=== PATIENT | female | born 1930 | race Caucasian/White ===

== ENCOUNTER 2017-12-17 17:21 | Inpatient (IN) | payer MEDICARE, MEDICAID ==
[~2017-12-17] VITALS: Ht 165.1 cm; Wt 73.9 kg
--- NOTE | 2017-12-17 16:30 | NUR ---
Patient arrived to unit via gurney and ambulance service, no complaints of pain at this time, no signs of distress noted, 106/80, 76 pulse, 98% on room air, 97.7 oral temperature, 19 respirations, no skin issues, brief changed at this time, incontinent of bowel and bladder, call light placed in reach, bed locked and in lowest position, MD Colon and Katiuska notified of patients arrival
[2017-12-17] MEDS ORDERED: ACETAMINOPHEN 325 MG TABLET PO PRN ×2 (17:45→20:30)
[2017-12-17] MEDS ORDERED: MAGNESIUM HYDROXIDE 30 ML LIQUID UDC PO PRN (17:45)
[2017-12-17] MEDS ORDERED: Z GUARD REMEDY PASTE 57 GM TUBE TOP PRN (17:45)
[2017-12-17] MEDS ORDERED: ROSU10TA PO (18:40)
[2017-12-17] MEDS ORDERED: CARV6.25 PO (18:40)
[2017-12-17] MEDS ORDERED: ACET-2154 PO (18:40)
[2017-12-17] MEDS ORDERED: LISI-603 PO (18:40)
[2017-12-17] MEDS ORDERED: DEXT38GE12 PO (18:43)
[2017-12-17] MEDS ORDERED: GLUC1KIT IJ (18:43)
[2017-12-17] MEDS ORDERED: FOLI1TAB16 PO (18:53)
[2017-12-17] MEDS ORDERED: ONDA4TAB5 PO (18:53)
[2017-12-17] MEDS ORDERED: INSU200I SQ (18:53)
[2017-12-17] MEDS ORDERED: QUET25TA PO (18:53)
[2017-12-17 20:00] VITALS: BP 147/64
--- NOTE | 2017-12-17 20:00 | NUR ---
Patient received in bed. AAO X2. Confused. No acute distress or SOB noted. Australian speaking. Able to makes needs known. On room air. Brief assessment done. VS stable. Complained of neck pain. Safety measures maintained. Bed in low position, brake on, side rails upx2. Call light and personal belongings within reach. Continue to monitor.
[2017-12-17] MEDS ORDERED: GLUCAGON,HUMAN RECOMBINANT 1 MG VIAL IVP PRN (20:30)
[2017-12-17] MEDS ORDERED: QUETIAPINE FUMARATE 25 MG TABLET PO PRN (20:30)
[2017-12-17] MEDS ORDERED: ONDANSETRON HCL 4 MG TABLET PO PRN (20:30)
[2017-12-17] MEDS ORDERED: GLUCOSE ORAL GEL 15 GM TUBE PO PRN (20:30)
[2017-12-17] MEDS ORDERED: ATORVASTATIN 20 MG TABLET PO SCH (21:00)
[2017-12-17] MEDS ORDERED: INSULIN LISPRO 300 UNIT/3 ML VIAL SQ SCH (21:00)
[2017-12-17] MEDS ORDERED: Medication Not On Formulary EA (Rosuvastatin Calcium (Crestor) 10 MG) PO SCH (21:00)
[2017-12-17] MEDS: LISINOPRIL 20 MG TABLET PO SCH (21:08)
[2017-12-17] MEDS: CARVEDILOL 6.25 MG TABLET PO SCH (21:08)
[2017-12-18 07:15] VITALS: BP 131/77
[2017-12-18] MEDS ORDERED: DEXTROSE 50% 50 ML DISP.SYRIN IV PRN (07:30)
--- NOTE | 2017-12-18 08:00 | NUR ---
Patient noted sitting up in bed, no complaints of pain at this time, no signs of distress noted, call light in reach, bed locked and in lowest position
[2017-12-18 08:15] VITALS: BP 165/70
[2017-12-18] MEDS: BLOOD SUGAR DIAGNOSTIC 1 EACH STRIP VI SCH ×4 (08:36→20:44)
[2017-12-18] MEDS: LISINOPRIL 20 MG TABLET PO SCH ×2 (08:37→20:38)
[2017-12-18] MEDS: FOLIC ACID 1 MG TABLET PO SCH (08:37)
[2017-12-18] MEDS: CARVEDILOL 6.25 MG TABLET PO SCH ×2 (08:38→17:26)
--- NOTE | 2017-12-18 11:00 | NUR ---
Per physical therapy observation, patient became non verbally responsive when assisted to bathroom commode, physical therapy staff states patient was assisted back the wheelchair when coherency returned and was wheeled back to room Addendum: 12/18/17 at 1306 by MAURISIO DOWNEY RN RN MD SHAW NOTIFIED OF FINDINGS
[2017-12-18] MEDS: INSULIN REGULAR, HUMAN 300 UNIT/3 ML VIAL SQ PRN ×2 (11:59→17:29)
[2017-12-18] MEDS ORDERED: METF-495 PO (14:38)
[2017-12-18] MEDS ORDERED: METH2.5T PO (14:40)
[2017-12-18 15:56] LABS: BASOPHILS % (AUTO) 0.4 % (0.0-2.0); EOSINOPHILS % (AUTO) 0.4 % (0.0-7.0); HEMATOCRIT 30.5 % (31.2-41.9); HEMOGLOBIN 10.2 g/dL (10.9-14.3); LYMPHOCYTES # (AUTO) 1.2 K/uL (20.0-40.0); LYMPHOCYTES % (AUTO) 17.2 % (20.5-51.5); MEAN CORPUSCULAR HEMOGLOBIN 32.8 uug (24.7-32.8); MEAN CORPUSCULAR HGB CONC 34 g/dL (32.3-35.6); MEAN CORPUSCULAR VOLUME 97.9 fL (75.5-95.3); MONOCYTES # (AUTO) 0.6 K/uL (2.0-10.0); MONOCYTES % (AUTO) 8.3 % (0.0-11.0); NEUTROPHILS # (AUTO) 5.3 K/uL (1.8-8.9); NEUTROPHILS % (AUTO) 73.7 % (38.5-71.5); PLATELET COUNT (AUTO) 312 K/uL (179-408); RED BLOOD CELL COUNT(AUTO) 3.12 MIL/uL (3.63-4.92); WHITE BLOOD COUNT (AUTO) 7.2 K/uL (3.8-11.8)
[2017-12-18 16:01] LABS: CARBON DIOXIDE 33 mmol/L (21-32); CHLORIDE 102 mmol/L (98-107); CREATININE 0.9 mg/dL (0.6-1.3); GLUCOSE 146 mg/dL (74-106); POTASSIUM 4.1 mmol/L (3.5-5.1); UREA NITROGEN, BLOOD 23 mg/dL (7-18)
[2017-12-18 16:06] LABS: CHOLESTEROL 139 mg/dL (<200); HDL CHOLESTEROL 24 mg/dL (40-60); PHOSPHOROUS 4.6 mg/dL (2.5-4.9); TRIGLYCERIDES 162 MG/DL (30-150)
[2017-12-18 16:15] LABS: THYROID STIMULATING HORMONE 0.948 mIU/mL (0.358-3.740)
[2017-12-18 16:30] VITALS: BP 148/55
[2017-12-18] MEDS: METFORMIN XR 500 MG TAB.SR.24H PO SCH (17:25)
--- NOTE | 2017-12-18 20:00 | NUR ---
Patient received sleeping in bed, arousal easily, AAO X2. Confused. No acute distress or SOB noted. Dominican speaking. Able to makes needs known. On room air. Brief assessment done. VS stable. Complained of tolerable neck pain. Safety measures maintained. Bed in low position, brake on, side rails upx2. Call light and personal belongings within reach. Continue to monitor.
[2017-12-18 20:10] VITALS: BP 149/64
[2017-12-18] MEDS: CELECOXIB 100 MG CAPSULE PO SCH (20:37)
[2017-12-18] MEDS: CRESTOR 10 MG PO SCH (20:38)
[2017-12-19 06:05] VITALS: BP 121/61
--- NOTE | 2017-12-19 06:14 | NUR ---
End of the shift note Patient was stable throughout the shift, has a good sleep last night. VS stable. No sign of acute distress or SOB noted. On room air. No Complain of pain. Medication given as ordered. Diaper changed, kept her clean and dry. Safety measures maintained. Accucheck done, @ 2100 BS: 113, no insulin coverage based on sliding scale. Fall precaution maintained. All needs attended promptly. Bed brake and alarm on, side rails upx2. Call light and personal belonging within reach. Continue to monitor and will endorse to the day shift nurse accordingly.
[2017-12-19] MEDS: BLOOD SUGAR DIAGNOSTIC 1 EACH STRIP VI SCH ×4 (06:32→22:03)
[2017-12-19 08:00] VITALS: BP 171/63
[2017-12-19] MEDS: CELECOXIB 100 MG CAPSULE PO SCH ×2 (08:18→22:03)
[2017-12-19] MEDS: LISINOPRIL 20 MG TABLET PO SCH ×2 (08:19→21:23)
[2017-12-19] MEDS: FOLIC ACID 1 MG TABLET PO SCH (08:19)
[2017-12-19] MEDS: CARVEDILOL 6.25 MG TABLET PO SCH ×2 (08:20→17:28)
--- NOTE | 2017-12-19 09:42 | NUR ---
Received patient sleeping in bed in stable condition. Farsi speaking. not in distress. no complaint of pain/discomfort. will continue monitor
[2017-12-19] MEDS: INSULIN REGULAR, HUMAN 300 UNIT/3 ML VIAL SQ PRN (11:14)
[2017-12-19 16:23] VITALS: BP 154/46
[2017-12-19] MEDS: METFORMIN XR 500 MG TAB.SR.24H PO SCH (17:28)
[2017-12-19 20:00] VITALS: BP 140/70
--- NOTE | 2017-12-19 20:00 | NUR ---
SIGNING ON. REPORTED OFF & CARE ENDORSED BY DAY SHIFT RN REGARDING STATUS. A&O X4. ABLE TO FOLLOW COMMANDS & SPEAK IN FULL SENTENCES. SPEECH CLEAR. DENIES ANY CP,SOB,AGUIRRE,NV/DIZZINESS. BS CLEAR, RESPIRATIONS EVEN & UNLABORED. 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 NO DROOP NOTED. 1+ EDEMA TO BLE. SCD'S IN PLACE. REPOSITIONED Q 2 HRS W/ ASSIST. TOLERATED WELL. INCONTINENT TO URINE W/ DIAPER IN PLACE. WILL CONTINUE TO MONITOR.
[2017-12-19] MEDS: CRESTOR 10 MG PO SCH (22:03)
--- NOTE | 2017-12-20 | NUR ---
EYES CLOSED & AROUSABLE. DENIES ANY PAIN/DISTRESS. DIAPER CHANGED & VIC CARE GIVEN. WILL CONTINUE TO MONITOR.
[2017-12-20 06:30] VITALS: BP 180/78
--- NOTE | 2017-12-20 06:30 | NUR ---
V/S UPDATED W/ SBP OF 180 mm Hg. DENIES ANY CP,SOB,AGUIRRE,N/V,DIZZINESS.STATUS REMAINS UNCHANGED. WILL LOOK TO SEE IF THERE IS ANY PRN B/P MEDS ON APR & WILL RECHECK. & ENDORSE TO DAY SHIFT RN. WILL CONTINUE TO MONITOR.
[2017-12-20] MEDS: BLOOD SUGAR DIAGNOSTIC 1 EACH STRIP VI SCH ×4 (07:13→20:54)
[2017-12-20 07:30] VITALS: BP 170/74
--- NOTE | 2017-12-20 07:30 | NUR ---
SIGNING OFF. REPORTED OFF & CARE ENDORSED TO DAY SHIFT RN ANSELMO REGARDING STATUS.
[2017-12-20] MEDS: CELECOXIB 100 MG CAPSULE PO SCH ×2 (08:02→20:49)
[2017-12-20] MEDS: LISINOPRIL 20 MG TABLET PO SCH ×2 (08:03→20:49)
[2017-12-20] MEDS: FOLIC ACID 1 MG TABLET PO SCH (08:03)
[2017-12-20] MEDS: CARVEDILOL 6.25 MG TABLET PO SCH ×2 (08:03→17:29)
--- NOTE | 2017-12-20 08:10 | NUR ---
Patient awake, alert, sitting up on bed eating breakfast, not in any form of acute distress. She denies any pain or discomfort at this time. Due medications given and patient tolerated it.
[2017-12-20 09:05] VITALS: BP 122/53
--- NOTE | 2017-12-20 09:22 | NUR ---
Called Dr. Jackson and informed him regarding BP 170/74 HR 66, per MD he will put order in.
--- NOTE | 2017-12-20 12:40 | NUR ---
Dr. Jackson saw patient, updated MD regarding latest blood pressure, with no new order.
--- NOTE | 2017-12-20 14:02 | NUR ---
INTERDISCIPLINARY TEAM CONFERENCE
[2017-12-20 15:57] VITALS: BP 146/56
[2017-12-20] MEDS: METFORMIN XR 500 MG TAB.SR.24H PO SCH (17:30)
[2017-12-20 20:46] VITALS: BP 157/56
[2017-12-20] MEDS: CRESTOR 10 MG PO SCH (20:49)
[2017-12-20] MEDS: METHYL SALICYLATE/MENTHOL CREAM 28 GM TUBE TOP PRN (20:52)
[2017-12-20] MEDS: INSULIN REGULAR, HUMAN 300 UNIT/3 ML VIAL SQ PRN (20:57)
[2017-12-21 05:20] VITALS: BP 130/76
[2017-12-21] MEDS: BLOOD SUGAR DIAGNOSTIC 1 EACH STRIP VI SCH ×4 (06:49→20:28)
[2017-12-21] MEDS: CARVEDILOL 6.25 MG TABLET PO SCH ×2 (08:06→16:14)
[2017-12-21] MEDS: CELECOXIB 100 MG CAPSULE PO SCH ×2 (08:06→20:28)
[2017-12-21] MEDS: FOLIC ACID 1 MG TABLET PO SCH (08:06)
[2017-12-21] MEDS: LISINOPRIL 20 MG TABLET PO SCH ×2 (08:06→20:28)
--- NOTE | 2017-12-21 10:55 | NUR ---
SBAR report received this morning, board updated. Pt assessed, no Acute distress noted. Pt denies pain. Pt assisted to the bathroom and back to bed, per voiding and 1BM. Pt compliant with all routinely scheduled medication administration, VSS, and cooperative with therapies as offered. Plan of care discussed with Pt. Bed in locked and lowest position with side rails up x2, and alarm on. Call light within reach. Will continue to monitor.
[2017-12-21] MEDS: METFORMIN XR 500 MG TAB.SR.24H PO SCH (18:30)
--- NOTE | 2017-12-21 18:36 | NUR ---
Pt assisted to bathroom per voiding and BMx1. Diaper and linens changed. Pt clean and dry. Assisted back to bed. All safety and comfort measures implemented and needs promptly addressed this shift. Bed alarm on and call light within reach. Will continue to monitor and endorse to oncoming overnight caregiver nurse.
--- NOTE | 2017-12-21 19:40 | NUR ---
Received pt in bed, AAO x 3 with daughter at bedside. No acute distress noted at this time. Verbally responsive, mainly Dominican speaking but able to communicate basic needs in Sinhala - daughter also at bedside to help translate needs. Denies pain or discomfort at this time. All safety measures and fall precautions maintained. Call light and all personal belongings within reach. Will continue to monitor.
[2017-12-21 19:55] VITALS: BP 148/55
[2017-12-21] MEDS: CRESTOR 10 MG PO SCH (20:28)
[2017-12-21] MEDS: INSULIN REGULAR, HUMAN 300 UNIT/3 ML VIAL SQ PRN (20:33)
[2017-12-22 06:30] VITALS: BP 140/58
[2017-12-22] MEDS: BLOOD SUGAR DIAGNOSTIC 1 EACH STRIP VI SCH ×2 (06:31→11:22)
[2017-12-22] MEDS: FOLIC ACID 1 MG TABLET PO SCH (08:17)
[2017-12-22] MEDS: LISINOPRIL 20 MG TABLET PO SCH ×2 (08:19→21:06)
[2017-12-22] MEDS: CARVEDILOL 6.25 MG TABLET PO SCH ×2 (08:20→16:11)
[2017-12-22] MEDS: CELECOXIB 100 MG CAPSULE PO SCH ×2 (08:20→21:05)
--- NOTE | 2017-12-22 08:39 | NUR ---
SBAR report received this morning, board updated. Pt assessed, AAO x2-3, no acute distress or SOB noted at this time. Pt denies pain. BP 183/69, hr 66, 98% RA. Pt is compliant with all routinely scheduled medication administration including regularly scheduled blood pressure medications, taking pills whole, will evaluate for effectiveness. BS 103 no need for coverage per sliding scale. Pt agrees to cooperate with therapies as offered. Today's plan of care discussed. Bed in locked and lowest position, with side rails up x2. Bed alarm on. Call light and personal items within reach. Will continue to monitor.
--- NOTE | 2017-12-22 14:00 | NUR ---
INTERDISCIPLINARY TEAM CONFERENCE
[2017-12-22] MEDS: METFORMIN XR 500 MG TAB.SR.24H PO SCH (17:34)
[2017-12-22 20:40] VITALS: BP 129/47
[2017-12-22] MEDS: CRESTOR 10 MG PO SCH (21:06)
--- NOTE | 2017-12-23 05:08 | NUR ---
quiet night. slept well most of the shift. no acute distress noted. OOB to the BR with assist. voiding well. denies any pain nor any discomfort. VSS will monitor patient.
[2017-12-23 05:56] VITALS: BP 177/71
--- NOTE | 2017-12-23 07:59 | NUR ---
Received pt. in bed, A/OX4. Pt. able to make her needs known. Comfortable in no acute distress. Denies pain or discomfort at this time. All pt. needs attended promptly. Safety measures and precaution in place. Call light and all frequently used items within pt. reach. Endorsed by previous shift, pt. want to take home medication (glucosamine/chondroitin). Medication brought in by pt. and sent to pharmacy. Will obtain order from MD. Will continue to monitor pt. accordingly.
[2017-12-23 08:02] VITALS: BP 190/76
[2017-12-23] MEDS: FOLIC ACID 1 MG TABLET PO SCH (08:23)
[2017-12-23] MEDS: CARVEDILOL 6.25 MG TABLET PO SCH ×2 (08:28→17:39)
[2017-12-23] MEDS: CELECOXIB 100 MG CAPSULE PO SCH ×2 (08:29→21:12)
[2017-12-23] MEDS: METHOTREXATE SODIUM 2.5 MG TABLET PO SCH (08:32)
[2017-12-23 14:56] VITALS: BP 143/62
[2017-12-23] MEDS: LISINOPRIL 20 MG TABLET PO SCH (17:38)
[2017-12-23] MEDS: METFORMIN XR 500 MG TAB.SR.24H PO SCH (17:39)
--- NOTE | 2017-12-23 18:53 | NUR ---
EOS NOTE: No significant change during this shift. All pt. need attended. All due medications given as ordered. No c/o SOB or CP. Safety measures in place. Call light and all frequently used items in reach. Will endorse to oncoming shift.
[2017-12-23 19:30] VITALS: BP 146/61
[2017-12-23] MEDS: CRESTOR 10 MG PO SCH (21:12)
[2017-12-24 04:00] VITALS: BP 166/70
--- NOTE | 2017-12-24 04:42 | NUR ---
quiet night. slept well most of the shift. denies any pain nor any discomfort. kept comfortable. will monitor patient. VSS ambulates to the BR with standby assist. voiding freely without any difficulty.
[2017-12-24 07:12] LABS: BASOPHILS % (AUTO) 0.3 % (0.0-2.0); EOSINOPHILS # (AUTO) 0.1 K/uL (0.0-0.7); EOSINOPHILS % (AUTO) 1.9 % (0.0-7.0); HEMATOCRIT 29.5 % (31.2-41.9); HEMOGLOBIN 10.1 g/dL (10.9-14.3); LYMPHOCYTES # (AUTO) 2.2 K/uL (20.0-40.0); LYMPHOCYTES % (AUTO) 35.5 % (20.5-51.5); MEAN CORPUSCULAR HEMOGLOBIN 33.5 uug (24.7-32.8); MEAN CORPUSCULAR HGB CONC 34 g/dL (32.3-35.6); MEAN CORPUSCULAR VOLUME 97.4 fL (75.5-95.3); MONOCYTES # (AUTO) 0.5 K/uL (2.0-10.0); MONOCYTES % (AUTO) 7.5 % (0.0-11.0); NEUTROPHILS # (AUTO) 3.5 K/uL (1.8-8.9); NEUTROPHILS % (AUTO) 54.8 % (38.5-71.5); PLATELET COUNT (AUTO) 458 K/uL (179-408); RED BLOOD CELL COUNT(AUTO) 3.03 MIL/uL (3.63-4.92); WHITE BLOOD COUNT (AUTO) 6.3 K/uL (3.8-11.8)
[2017-12-24 08:02] LABS: ALANINE AMINOTRANSFERASE 43 U/L (14-59); ALKALINE PHOSPHATASE 118 U/L (50-136); ASPARTATE AMINOTRANSFERASE 28 U/L (15-37); BILIRUBIN,TOTAL 0.2 mg/dL (0.2-1.0); CARBON DIOXIDE 30 mmol/L (21-32); CHLORIDE 103 mmol/L (98-107); CREATININE 0.8 mg/dL (0.6-1.3); GLUCOSE 105 mg/dL (74-106); MAGNESIUM 1.8 mg/dL (1.8-2.4); TOTAL PROTEIN, SERUM 6.1 g/dL (6.4-8.2); UREA NITROGEN, BLOOD 22 mg/dL (7-18); URIC ACID 4.3 mg/dL (2.6-6.0)
[2017-12-24] MEDS: FOLIC ACID 1 MG TABLET PO SCH (08:12)
[2017-12-24] MEDS: CARVEDILOL 6.25 MG TABLET PO SCH ×2 (08:12→17:03)
[2017-12-24] MEDS: [UNRECOGNIZED DRUG - OTHER] PO SCH (08:13)
[2017-12-24] MEDS: METHYLSULFONYLMETHANE PO SCH (08:13)
[2017-12-24] MEDS: CHONDROITIN PO SCH (08:13)
[2017-12-24] MEDS: GLUCOSAMINE PO SCH (08:13)
[2017-12-24] MEDS: CELECOXIB 100 MG CAPSULE PO SCH ×2 (08:13→20:53)
--- NOTE | 2017-12-24 09:07 | NUR ---
Received pt. in bed, A/OX4. Pt. able to make her needs known. Comfortable in no acute distress. Denies pain or discomfort at this time. All pt. needs attended promptly. Safety measures and precaution in place. No new skin condition noted. Call light and all frequently used items within pt. reach. All due AM medications given as ordered. Will continue to monitor pt. accordingly
[2017-12-24] MEDS: AMLODIPINE 5 MG TABLET PO SCH ×2 (10:30→20:52)
[2017-12-24] MEDS ORDERED: CLONIDINE HCL 0.1 MG TABLET PO PRN (10:30)
[2017-12-24 10:45] VITALS: BP 178/70
[2017-12-24 16:03] VITALS: BP 159/70
[2017-12-24] MEDS: LISINOPRIL 20 MG TABLET PO SCH (17:02)
[2017-12-24] MEDS: METFORMIN XR 500 MG TAB.SR.24H PO SCH (17:03)
--- NOTE | 2017-12-24 18:00 | NUR ---
EOS NOTE: No significant change during this shift. All pt. need attended. All due medications given as ordered. No c/o SOB or CP. Pt. showered today and participated with PT/OT/ST, tolerated well. Kept pt. clean and dry throughout this shift. Safety measures in place. Call light and all frequently used items in reach. Will endorse to oncoming shift.
[2017-12-24] MEDS: METHYL SALICYLATE/MENTHOL CREAM 28 GM TUBE TOP PRN (18:03)
[2017-12-24 20:20] VITALS: BP 136/58
[2017-12-24] MEDS: DOCUSATE SODIUM 100 MG CAPSULE PO SCH (20:52)
[2017-12-24] MEDS: CRESTOR 10 MG PO SCH (20:53)
--- NOTE | 2017-12-24 22:07 | NUR ---
SBAR report received. aaox4 ambulatory ad darinel. needs attended. kept comfortable. denies any pain nor any discomfort. VSS tolerated po meds well. voiding freely. no acute distress noted. will monitor patient. fall precautions maintained.siderails up for safety.
[2017-12-25 05:00] VITALS: BP 182/70
[2017-12-25 08:27] VITALS: BP 119/83
[2017-12-25] MEDS: FOLIC ACID 1 MG TABLET PO SCH (09:14)
[2017-12-25] MEDS: MULTIVITAMINS,THERAPEUTIC TABLET PO SCH (09:14)
[2017-12-25] MEDS: METHYLSULFONYLMETHANE PO SCH (09:14)
[2017-12-25] MEDS: [UNRECOGNIZED DRUG - OTHER] PO SCH (09:14)
[2017-12-25] MEDS: CHONDROITIN PO SCH (09:14)
[2017-12-25] MEDS: GLUCOSAMINE PO SCH (09:14)
[2017-12-25] MEDS: CARVEDILOL 6.25 MG TABLET PO SCH ×2 (09:15→17:08)
[2017-12-25] MEDS: CELECOXIB 100 MG CAPSULE PO SCH ×2 (09:15→20:35)
[2017-12-25] MEDS: AMLODIPINE 5 MG TABLET PO SCH ×2 (09:15→20:36)
--- NOTE | 2017-12-25 09:56 | NUR ---
Patient continue therapy for ambulation and unsteady gait and ADL activity. For UA/CS collection Patient instruction given. no complaint of pain/discomfort. will continue monitor
--- NOTE | 2017-12-25 13:33 | NUR ---
INTERDISCIPLINARY TEAM CONFERENCE
[2017-12-25 16:26] VITALS: BP 118/55
[2017-12-25] MEDS: METFORMIN XR 500 MG TAB.SR.24H PO SCH (17:09)
[2017-12-25] MEDS: LISINOPRIL 20 MG TABLET PO SCH (17:09)
[2017-12-25 20:00] VITALS: BP 135/60
[2017-12-25] MEDS: DOCUSATE SODIUM 100 MG CAPSULE PO SCH (20:35)
[2017-12-25] MEDS: CRESTOR 10 MG PO SCH (20:36)
--- NOTE | 2017-12-25 21:38 | NUR ---
Received pt resting in bed and talking on the phone. AAO x3, Luxembourger speaking. No acute distress noted. No c/o pain or discomfort. Meds given as ordered. VSS. Safety measures maintained. Call light and personal belongings within reach. Will continue to monitor.
[2017-12-26 05:00] VITALS: BP 134/62
[2017-12-26 08:00] VITALS: BP 162/59
[2017-12-26] MEDS: FOLIC ACID 1 MG TABLET PO SCH (08:44)
[2017-12-26] MEDS: CARVEDILOL 6.25 MG TABLET PO SCH ×2 (08:45→17:01)
[2017-12-26] MEDS: MULTIVITAMINS,THERAPEUTIC TABLET PO SCH (08:45)
[2017-12-26] MEDS: CHONDROITIN PO SCH (08:46)
[2017-12-26] MEDS: GLUCOSAMINE PO SCH (08:46)
[2017-12-26] MEDS: [UNRECOGNIZED DRUG - OTHER] PO SCH (08:46)
[2017-12-26] MEDS: CELECOXIB 100 MG CAPSULE PO SCH ×2 (08:46→23:25)
[2017-12-26] MEDS: METHYLSULFONYLMETHANE PO SCH (08:46)
[2017-12-26] MEDS: AMLODIPINE 5 MG TABLET PO SCH ×2 (08:46→23:23)
[2017-12-26 10:33] LABS: *BILIRUBIN,URIN NEGATIVE (NEGATIVE); *BLOOD, URINE 1+ (NEGATIVE); *CLARITY,URINE SLIGHTLY CLOUDY (CLEAR); *COLOR,URINE YELLOW (YELLOW); *KETONES,URINE NEGATIVE (NEGATIVE); *PROTEIN,URINE NEGATIVE (NEGATIVE); *UROBILINOGEN,URINE 0.2 E.U./dl (NORMAL); LEUKOCYTE ESTERASE ,URINE TRACE (NEGATIVE); NITRITE, URINE NEGATIVE (NEGATIVE); UGLUCOSE NEGATIVE (NEGATIVE)
[2017-12-26 10:42] LABS: BACTERIA,URINE MODERATE /HPF (NONE SEEN); SQUAMOUS EPITHELIAL CELL,UR MANY /HPF (NONE SEEN)
--- NOTE | 2017-12-26 11:00 | NUR ---
Patient collected urine for UA/CS. awaiting result. no complaint of pain/discomfort noted. Continue on therapy for ambulation and ADL activity. not in distress. no behavioral problem noted at this time. will continue monitor
[2017-12-26] MEDS: NITROFURANTOIN/NITROFURAN MAC 100 MG CAPSULE PO SCH ×2 (12:18→23:24)
--- NOTE | 2017-12-26 12:55 | NUR ---
Patient seen and examined by MD Callahan, result for UA/CS came with increase WBC, MD order macrobid every 12 hours for UTI. no adverse reaction noted. will continue monitor
[2017-12-26 16:27] VITALS: BP 140/71
[2017-12-26] MEDS: LISINOPRIL 20 MG TABLET PO SCH (17:02)
[2017-12-26] MEDS: METFORMIN XR 500 MG TAB.SR.24H PO SCH (17:03)
--- NOTE | 2017-12-26 19:15 | NUR ---
Hand-off Report received from Jumana RAMIREZ with bedside inspection. Pt. awake. Reinforced that pt should use call light before getting up to bathroom unaccompanied. Pt nodding head in compliance but facial expression frowning. Pt education concerning fall prevention. Pt stated "I know". Bed alarm on. Continue to monitor and encourage compliance with using call light for assist. Monitor frequently q 1hr or less.
[2017-12-26 19:51] VITALS: BP 159/56
[2017-12-26] MEDS: CRESTOR 10 MG PO SCH (23:24)
[2017-12-26] MEDS: DOCUSATE SODIUM 100 MG CAPSULE PO SCH (23:25)
--- NOTE | 2017-12-27 06:30 | NUR ---
Pt continued non-compliant thru-out shift X5 getting out of bed without using call light. Pt able to return demonstration inspite of not following thru with light. Pass on to on-coming shift to continue pt education in this area.
--- NOTE | 2017-12-27 07:15 | NUR ---
Hand-off report given to Kal RAMIREZ who assumed care of pt at this time. Pt status unchanged...Resting quietly in be at this time.
[2017-12-27 08:00] VITALS: BP 156/54
[2017-12-27] MEDS: CARVEDILOL 6.25 MG TABLET PO SCH ×2 (08:32→17:24)
[2017-12-27] MEDS: MULTIVITAMINS,THERAPEUTIC TABLET PO SCH (08:32)
[2017-12-27] MEDS: FOLIC ACID 1 MG TABLET PO SCH (08:33)
[2017-12-27] MEDS: NITROFURANTOIN/NITROFURAN MAC 100 MG CAPSULE PO SCH ×2 (08:33→22:38)
[2017-12-27] MEDS: AMLODIPINE 5 MG TABLET PO SCH ×2 (08:33→22:37)
[2017-12-27] MEDS: CELECOXIB 100 MG CAPSULE PO SCH ×2 (08:33→22:36)
[2017-12-27] MEDS: METHYLSULFONYLMETHANE PO SCH (08:34)
[2017-12-27] MEDS: GLUCOSAMINE PO SCH (08:34)
[2017-12-27] MEDS: [UNRECOGNIZED DRUG - OTHER] PO SCH (08:34)
[2017-12-27] MEDS: CHONDROITIN PO SCH (08:34)
--- NOTE | 2017-12-27 09:19 | NUR ---
Received pt. in bed, A/OX3 verbally responsive and able to make her needs known. Comfortable in no acute distress. Denies pain or discomfort at this time. All due AM medications given as ordered. On PO ABX for UTI, no ASE noted. All pt. needs attended promptly. Safety measures and precaution in place. No new skin condition noted. Call light and all frequently used items within pt. reach. Will continue to monitor pt. accordingly
[2017-12-27 16:05] VITALS: BP 128/57
[2017-12-27] MEDS: METFORMIN XR 500 MG TAB.SR.24H PO SCH (17:25)
[2017-12-27] MEDS: LISINOPRIL 20 MG TABLET PO SCH (17:25)
[2017-12-27] MEDS: METHYL SALICYLATE/MENTHOL CREAM 28 GM TUBE TOP PRN (17:29)
--- NOTE | 2017-12-27 18:31 | NUR ---
EOS NOTE: No significant change during this shift. All pt. need attended. All due medications given as ordered. No c/o SOB or CP. Kept pt. clean and dry throughout this shift. Safety measures in place. Call light and all frequently used items in reach. Will endorse to oncoming shift.
--- NOTE | 2017-12-27 19:10 | NUR ---
Hand-Off Report received from Kal RAMIREZ. Assumed care of pt at this time. Pt using call light for BRP per report. Encourage pt to continue with asking for assistance before going to bathroom alone.
--- NOTE | 2017-12-27 20:15 | NUR ---
Pt denies burning upon urination or headache. B/P elevated 152/69.
[2017-12-27 20:18] VITALS: BP 152/69
--- NOTE | 2017-12-27 22:00 | NUR ---
Norvasc 5mg along with other pm meds. Denies pain or needs.
[2017-12-27] MEDS: DOCUSATE SODIUM 100 MG CAPSULE PO SCH (22:38)
[2017-12-27] MEDS: CRESTOR 10 MG PO SCH (22:38)
[2017-12-28 05:40] VITALS: BP 152/72
--- NOTE | 2017-12-28 07:10 | NUR ---
Hand-off report given to Kal RAMIREZ who assumed care of pt at this time. Uneventful night. Pt complying with call light for BRP assist. Slept thru-out night without complaints of pain, headache. AOX4. Pt stated to me that her daughter explained to her that the male nurses as well as female nurses are here to assist with her care and to make sure she doesn't fall. Pt. cont. to verbalize some wariness concerning male personnel. Relayed this to on-coming nurse who is male.
[2017-12-28 07:15] VITALS: BP 169/67
[2017-12-28] MEDS: MULTIVITAMINS,THERAPEUTIC TABLET PO SCH (08:19)
[2017-12-28] MEDS: FOLIC ACID 1 MG TABLET PO SCH (08:19)
[2017-12-28] MEDS: CARVEDILOL 6.25 MG TABLET PO SCH ×2 (08:19→17:18)
[2017-12-28] MEDS: GLUCOSAMINE PO SCH (08:20)
[2017-12-28] MEDS: AMLODIPINE 5 MG TABLET PO SCH ×2 (08:20→20:17)
[2017-12-28] MEDS: CHONDROITIN PO SCH (08:20)
[2017-12-28] MEDS: CELECOXIB 100 MG CAPSULE PO SCH ×2 (08:20→20:17)
[2017-12-28] MEDS: NITROFURANTOIN/NITROFURAN MAC 100 MG CAPSULE PO SCH ×2 (08:20→20:17)
[2017-12-28] MEDS: METHYLSULFONYLMETHANE PO SCH (08:20)
[2017-12-28] MEDS: [UNRECOGNIZED DRUG - OTHER] PO SCH (08:20)
[2017-12-28] MEDS: METHYL SALICYLATE/MENTHOL CREAM 28 GM TUBE TOP PRN (08:26)
--- NOTE | 2017-12-28 09:33 | NUR ---
Received pt. in bed, A/OX3 verbally responsive and able to make her needs known. Comfortable in no acute distress. C/O of mild (2/10 p.s) pain on Lt. knee, applied Bengay cream sparingly to affected area with relief. All due AM medications given as ordered. On PO ABX for UTI, no ASE noted. All pt. needs attended promptly. Safety measures and precaution in place. No new skin condition noted. Call light and all frequently used items within pt. reach. Will continue to monitor pt. accordingly
[2017-12-28 15:38] VITALS: BP 156/68
[2017-12-28] MEDS: METFORMIN XR 500 MG TAB.SR.24H PO SCH (17:19)
[2017-12-28] MEDS: LISINOPRIL 20 MG TABLET PO SCH (17:19)
--- NOTE | 2017-12-28 17:46 | NUR ---
EOS NOTE: No significant change during this shift. All pt. needs attended and met. All due medications given as ordered. No c/o SOB or CP. Kept pt. clean and dry throughout this shift. Safety measures in place. Encouraged pt. to use call light for assistance as pt. tend to use bathroom by herself, pt. verbalized understanding but to reinforcement. Call light and all frequently used items in reach. Will endorse to oncoming shift.
[2017-12-28 19:38] VITALS: BP 125/66
[2017-12-28] MEDS: DOCUSATE SODIUM 100 MG CAPSULE PO SCH (20:16)
[2017-12-28] MEDS: CRESTOR 10 MG PO SCH (20:17)
--- NOTE | 2017-12-28 20:45 | NUR ---
Received pt resting in bed and talking with son on the phone. AAO x3, but forgetful. Jamaican speaking, able to make needs known. No acute distress noted. No c/o pain or discomfort. Meds given as ordered. Tolerated well. Safety measures maintained. Bed alarm on. Call light and personal belongings within reach. Will continue to monitor.
[2017-12-29 05:55] VITALS: BP 128/77
[2017-12-29 08:00] VITALS: BP 96/63
[2017-12-29] MEDS: MULTIVITAMINS,THERAPEUTIC TABLET PO SCH (08:26)
[2017-12-29] MEDS: FOLIC ACID 1 MG TABLET PO SCH (08:26)
[2017-12-29] MEDS: [UNRECOGNIZED DRUG - OTHER] PO SCH (08:27)
[2017-12-29] MEDS: METHYLSULFONYLMETHANE PO SCH (08:27)
[2017-12-29] MEDS: GLUCOSAMINE PO SCH (08:27)
[2017-12-29] MEDS: CELECOXIB 100 MG CAPSULE PO SCH ×2 (08:27→22:41)
[2017-12-29] MEDS: CHONDROITIN PO SCH (08:27)
[2017-12-29] MEDS: NITROFURANTOIN/NITROFURAN MAC 100 MG CAPSULE PO SCH ×2 (08:27→22:40)
[2017-12-29] MEDS: AMLODIPINE 5 MG TABLET PO SCH ×2 (08:30→22:39)
[2017-12-29] MEDS: CARVEDILOL 6.25 MG TABLET PO SCH ×2 (08:30→17:37)
--- NOTE | 2017-12-29 13:48 | NUR ---
SBAR report and Pt received this morning, resting in bed, AAOx3. No acute distress, pain, or SOB. Pt complaint with routine medication administration. Visitor visiting at bedside this morning. Bed in locked and lowest position with sided rails up x2, bed alarm on. Pt encouraged to use call light for any assistance. All safety and comfort needs met. Call light and personal belongings placed within reach. Will continue to monitor.
[2017-12-29 16:00] VITALS: BP 142/68
[2017-12-29] MEDS: METFORMIN XR 500 MG TAB.SR.24H PO SCH (17:35)
[2017-12-29] MEDS: LISINOPRIL 20 MG TABLET PO SCH (17:36)
[2017-12-29 20:45] VITALS: BP 149/68
[2017-12-29] MEDS: DOCUSATE SODIUM 100 MG CAPSULE PO SCH (22:39)
[2017-12-29] MEDS: CRESTOR 10 MG PO SCH (22:40)
[2017-12-30 05:49] VITALS: BP 146/65
--- NOTE | 2017-12-30 07:48 | NUR ---
SBAR report received this morning. Pt resting in bed. Pt assessed AAOx3. No s/s of acute distress or SOB noted. Pt denies pain at this time. Bed in locked and lowest position with side rails up and alarm on. Board updated. Call light within reach. All safety and comfort measures in place, will continue to monitor.
[2017-12-30 08:00] VITALS: BP 152/58
[2017-12-30] MEDS: FOLIC ACID 1 MG TABLET PO SCH (08:25)
[2017-12-30] MEDS: CHONDROITIN PO SCH (08:26)
[2017-12-30] MEDS: GLUCOSAMINE PO SCH (08:26)
[2017-12-30] MEDS: [UNRECOGNIZED DRUG - OTHER] PO SCH (08:26)
[2017-12-30] MEDS: CARVEDILOL 6.25 MG TABLET PO SCH ×2 (08:26→17:18)
[2017-12-30] MEDS: CELECOXIB 100 MG CAPSULE PO SCH ×2 (08:26→20:40)
[2017-12-30] MEDS: AMLODIPINE 5 MG TABLET PO SCH ×2 (08:26→20:39)
[2017-12-30] MEDS: MULTIVITAMINS,THERAPEUTIC TABLET PO SCH (08:26)
[2017-12-30] MEDS: METHYLSULFONYLMETHANE PO SCH (08:26)
[2017-12-30] MEDS: NITROFURANTOIN/NITROFURAN MAC 100 MG CAPSULE PO SCH ×2 (08:27→20:40)
[2017-12-30] MEDS: METHOTREXATE SODIUM 2.5 MG TABLET PO SCH (10:35)
[2017-12-30 15:52] VITALS: BP 139/62
[2017-12-30] MEDS: LISINOPRIL 20 MG TABLET PO SCH (17:17)
[2017-12-30] MEDS: METFORMIN XR 500 MG TAB.SR.24H PO SCH (17:18)
[2017-12-30] MEDS: DOCUSATE SODIUM 100 MG CAPSULE PO SCH (20:37)
[2017-12-30] MEDS: CRESTOR 10 MG PO SCH (20:41)
[2017-12-30 20:45] VITALS: BP 146/60
--- NOTE | 2017-12-30 20:45 | NUR ---
NSG: Received pt resting in bed. plesant upon approach. alert and oriented x3. Tanzanian speaking, able to make needs known. patient is forgetful. No acute distress noted. No c/o pain or discomfort. Meds given as ordered. Tolerated well. Safety measures maintained. Bed alarm on. Call light and personal belongings within reach. Will continue to monitor.
--- NOTE | 2017-12-31 05:46 | NUR ---
nsg: slept well through the night. no c/o pain or discomfort at this time. assisted to use bathroom and back to bed,call light w/in reach.resting in bed comfortably.
[2017-12-31] MEDS: MULTIVITAMINS,THERAPEUTIC TABLET PO SCH (08:12)
[2017-12-31] MEDS: CARVEDILOL 6.25 MG TABLET PO SCH ×2 (08:13→17:28)
[2017-12-31] MEDS: CELECOXIB 100 MG CAPSULE PO SCH ×2 (08:13→20:50)
[2017-12-31] MEDS: FOLIC ACID 1 MG TABLET PO SCH (08:13)
[2017-12-31] MEDS: AMLODIPINE 5 MG TABLET PO SCH ×2 (08:13→20:51)
[2017-12-31] MEDS: NITROFURANTOIN/NITROFURAN MAC 100 MG CAPSULE PO SCH (08:14)
[2017-12-31] MEDS: GLUCOSAMINE PO SCH (08:15)
[2017-12-31] MEDS: CHONDROITIN PO SCH (08:15)
[2017-12-31] MEDS: [UNRECOGNIZED DRUG - OTHER] PO SCH (08:15)
[2017-12-31] MEDS: METHYLSULFONYLMETHANE PO SCH (08:15)
[2017-12-31 08:38] VITALS: BP 142/71
--- NOTE | 2017-12-31 12:12 | NUR ---
Patient continue fall risk monitoring. Continue trying to get up from bed despite of education to use the call light.Ongoing bed alarm for monitoring. Continue therapy for unsteady gait and ambulation. will continue monitor
[2017-12-31 16:04] VITALS: BP 131/63
[2017-12-31] MEDS: LISINOPRIL 20 MG TABLET PO SCH (17:28)
[2017-12-31] MEDS: METFORMIN XR 500 MG TAB.SR.24H PO SCH (17:29)
[2017-12-31 19:30] VITALS: BP 149/63
[2017-12-31] MEDS: CRESTOR 10 MG PO SCH (20:50)
[2017-12-31] MEDS: DOCUSATE SODIUM 100 MG CAPSULE PO SCH (20:51)
[2018-01-01 04:00] VITALS: BP 151/58
--- NOTE | 2018-01-01 04:45 | NUR ---
quiet night.aaoxs-4 VSS On continous Oxygen @ 2L via nasal cannula. fall precautiions maintained. siderails up for safety. No evidence of numbness . left hand weakness noted. Denies any pain nor any discomfort noted. will monitor patient,
[2018-01-01] MEDS: MULTIVITAMINS,THERAPEUTIC TABLET PO SCH (08:34)
[2018-01-01] MEDS: CARVEDILOL 6.25 MG TABLET PO SCH ×2 (08:34→17:04)
[2018-01-01] MEDS: FOLIC ACID 1 MG TABLET PO SCH (08:34)
[2018-01-01] MEDS: METHYLSULFONYLMETHANE PO SCH (08:35)
[2018-01-01] MEDS: GLUCOSAMINE PO SCH (08:35)
[2018-01-01] MEDS: [UNRECOGNIZED DRUG - OTHER] PO SCH (08:35)
[2018-01-01] MEDS: AMLODIPINE 5 MG TABLET PO SCH ×2 (08:35→20:36)
[2018-01-01] MEDS: CHONDROITIN PO SCH (08:35)
[2018-01-01] MEDS: CELECOXIB 100 MG CAPSULE PO SCH ×2 (08:36→20:35)
[2018-01-01 08:40] VITALS: BP 157/70
--- NOTE | 2018-01-01 10:08 | NUR ---
Patient is alert and orientedx3 with periods of confusion. Continue therapy for ambulation and unsteady gait. tolerated well. no complaint of pain/discomfort. will continue monitor
--- NOTE | 2018-01-01 13:09 | NUR ---
INTERDISCIPLINARY TEAM CONFERENCE
[2018-01-01] MEDS ORDERED: TRIAMCINOLONE ACETONIDE 40 MG/1 ML VIAL IM ONE (14:00)
[2018-01-01] MEDS ORDERED: LIDOCAINE HCL 1% 20 ML VIAL IJ PRN (14:00)
[2018-01-01 16:16] VITALS: BP 127/58
[2018-01-01] MEDS: METFORMIN XR 500 MG TAB.SR.24H PO SCH (17:04)
[2018-01-01] MEDS: LISINOPRIL 20 MG TABLET PO SCH (17:04)
--- NOTE | 2018-01-01 17:33 | NUR ---
Patient had injection left knee kenlog 40mg with MD Colon around 3pm. no complaint of pain/discomfort noted. for discharge kelvin with TMS attach to chart. to be sampler pickup by ambulance. will continue monitor
[2018-01-01 19:30] VITALS: BP 131/62
--- NOTE | 2018-01-01 19:58 | NUR ---
SBAR report received. OOB to the BR with supervision. voiding without difficulty. denies any pain nor any discomfort. VSS kept comfortable. needs attended. possible discharge tomorrow. no acute distress noted.
[2018-01-01] MEDS: DOCUSATE SODIUM 100 MG CAPSULE PO SCH (20:35)
[2018-01-01] MEDS: CRESTOR 10 MG PO SCH (20:35)
[2018-01-02 04:00] VITALS: BP 142/70
[2018-01-02 08:01] VITALS: BP 147/70
[2018-01-02] MEDS: FOLIC ACID 1 MG TABLET PO SCH (08:18)
[2018-01-02] MEDS: MULTIVITAMINS,THERAPEUTIC TABLET PO SCH (08:18)
[2018-01-02 08:19] VITALS: BP 147/70
[2018-01-02] MEDS: CARVEDILOL 6.25 MG TABLET PO SCH (08:19)
[2018-01-02] MEDS: CELECOXIB 100 MG CAPSULE PO SCH (08:19)
[2018-01-02] MEDS: AMLODIPINE 5 MG TABLET PO SCH (08:19)
[2018-01-02] MEDS: CHONDROITIN PO SCH (08:24)
[2018-01-02] MEDS: [UNRECOGNIZED DRUG - OTHER] PO SCH (08:24)
[2018-01-02] MEDS: METHYLSULFONYLMETHANE PO SCH (08:24)
[2018-01-02] MEDS: GLUCOSAMINE PO SCH (08:24)
--- NOTE | 2018-01-02 09:44 | NUR ---
SBAR report received, board updated. Pt VSS. Pt received resting in bed, assessed, no acute distress or pain noted. Pt compliant with all routinely scheduled medication administration. VSS. Plan for today discussed, including anticipated discharge this afternoon. All safety and comfort measures implemented. Bed in locked and lowest position with side rails up x2, bed alarm on. Call light placed within reach. Will continue to monitor.
--- NOTE | 2018-01-02 14:30 | NUR ---
Pt seen by no additional new orders, approved D/C and TMS signed. Discharge orders received, paperwork completed, discussed with Pt and signed, originals provided to Pt and copies placed in chart. Pt educational material reviewed with daughter and Pt, and provided to Pt. Rx discussed with Pt and daughter, to continue as previously taken at home. Faxed to [facility] preferred pharmacy, confirmed receipt. Originals provided to Pt and copy placed in chart. Skin integrity intact, no wounds to photograph. All discharge concerns addressed including how to follow up with scheduling appointment. Home medications returned along with all personal belongings. FWW provided and given to Pt. Pt refused to accept BSC. VSS. ID band removed. Report given to manager paid, and Pt safely transferred to ambulance [facility] and escorted out of hospital. Will remove Pt from system shortly.
== END 2018-01-02 14:30 | disposition home health service (06) | DRG 71 ==
PROVIDERS: ADMIT Physical Medicine & Rehabilitation Pain Medicine; ATTEND Physical Medicine & Rehabilitation Pain Medicine
DX: G93.40 Encephalopathy, unspecified (principal); N39.0 Urinary tract infection, site not specified; D53.9 Nutritional anemia, unspecified; E11.9 Type 2 diabetes mellitus without complications; E78.5 Hyperlipidemia, unspecified; I10 Essential (primary) hypertension; I35.1 Nonrheumatic aortic (valve) insufficiency; R26.2 Difficulty in walking, not elsewhere classified; R53.1 Weakness; M20.42 Other hammer toe(s) (acquired), left foot; M17.12 Unilateral primary osteoarthritis, left knee; M20.12 Hallux valgus (acquired), left foot; S93.302A Unspecified subluxation of left foot, initial encounter; X58.XXXA Exposure to other specified factors, initial encounter; Y93.9 Activity, unspecified; Y92.009 Unspecified place in unspecified non-institutional (private) residence as the place of occurrence of the external cause; M47.892 Other spondylosis, cervical region
CPT/HCPCS: 36415; 70030-TC; 71045; 73560; 73630; 82652; 83735; 84100; 84443; 84550; 85025; 87077; 87086; 92523; 93005; 97110; 97116; 97530; 97535; A4663; J1815; J3301; J3490; J8610

== ENCOUNTER 2018-04-28 13:26 | Inpatient (IN) | payer MEDICARE, MEDICAID ==
[~2018-04-28] VITALS: Ht 165.1 cm; Wt 74.8 kg
[~2018-04-28 13:26] MED LIST: ACET-2154 PO; CARV6.25 PO; DEXT38GE12 PO; FOLI1TAB16 PO; GLUC1KIT IJ; INSU200I SQ; LISI-603 PO; METF-495 PO; METH2.5T PO; ONDA4TAB5 PO; QUET25TA PO; ROSU10TA2 PO
--- NOTE | 2018-04-28 13:50 | NUR ---
BIB [facility] FOR C/O FAINTING TODAY WHILE STANDING ON HER [place] WITH FAMILY. PATIENT IS AWAKE, ALERT. ORIENTED X3.
[2018-04-28 13:58] LABS: BASOPHILS % (AUTO) 0.6 % (0.0-2.0); EOSINOPHILS # (AUTO) 0.1 K/uL (0.0-0.7); EOSINOPHILS % (AUTO) 0.8 % (0.0-7.0); HEMATOCRIT 31.5 % (31.2-41.9); HEMOGLOBIN 10.3 g/dL (10.9-14.3); LYMPHOCYTES # (AUTO) 1.6 K/uL (20.0-40.0); LYMPHOCYTES % (AUTO) 25.3 % (20.5-51.5); MEAN CORPUSCULAR HEMOGLOBIN 29.8 uug (24.7-32.8); MEAN CORPUSCULAR HGB CONC 33 g/dL (32.3-35.6); MEAN CORPUSCULAR VOLUME 91.3 fL (75.5-95.3); MONOCYTES # (AUTO) 0.5 K/uL (2.0-10.0); MONOCYTES % (AUTO) 7.4 % (0.0-11.0); NEUTROPHILS # (AUTO) 4.1 K/uL (1.8-8.9); NEUTROPHILS % (AUTO) 65.9 % (38.5-71.5); PLATELET COUNT (AUTO) 262 K/uL (179-408); RED BLOOD CELL COUNT(AUTO) 3.45 MIL/uL (3.63-4.92); WHITE BLOOD COUNT (AUTO) 6.2 K/uL (3.8-11.8)
[2018-04-28 14:10] LABS: CARBON DIOXIDE 28 mmol/L (21-32); CHLORIDE 105 mmol/L (98-107); CREATININE 0.9 mg/dL (0.6-1.3); GLUCOSE 194 mg/dL (74-106); POTASSIUM 3.7 mmol/L (3.5-5.1); UREA NITROGEN, BLOOD 18 mg/dL (7-18)
[2018-04-28 14:14] LABS: ALANINE AMINOTRANSFERASE 14 U/L (14-59); ALKALINE PHOSPHATASE 67 U/L (50-136); ASPARTATE AMINOTRANSFERASE 15 U/L (15-37); BILIRUBIN,DIRECT 0.1 mg/dL (0.0-0.2); BILIRUBIN,TOTAL 0.2 mg/dL (0.2-1.0); TOTAL PROTEIN, SERUM 6.4 g/dL (6.4-8.2)
[2018-04-28] MEDS ORDERED: ASPIRIN 81 MG TAB.CHEW PO ONE (14:30)
[2018-04-28] MEDS ORDERED: ASPIRIN 81 MG TAB.CHEW ONE (14:41)
--- NOTE | 2018-04-28 14:45 | NUR ---
PT DAUGHTER WILL CALL AND GIVE THE NAME AND DOSGES OF THE MEDS THE PT IS ON.
[2018-04-28] MEDS ORDERED: CARV6.25 PO (15:47)
[2018-04-28] MEDS ORDERED: METF-494 PO (15:55)
--- NOTE | 2018-04-28 16:11 | NUR ---
RECEIVED PATIENT AT THIS TIME FROM EMERGENCY ROOM IN STABLE CONDITION. NO SIGNS OF DISTRESS. BLOOD PRESSURE ELEVATED - PROFESSOR OF ART HISTORY NOTIFIED. ID-BAND PLACED. TELEMETRY MONITORING PLACED - SINUS RHYTHM. AMBULATORY WITH ASSISTANCE. A/OX4. IV-ACCESS PATENT - FLUSHING WELL. BELONGINGS CHECKED. NO SIGNS OR COMPLAINTS OF DIZZINESS/LIGHTHEADEDNESS. NO SOB. NO COMPLAINTS OF PAIN VERBALIZED BY PATIENT. AWAITING ADMITTING ORDERS. WILL CONTINUE TO MONITOR UNTIL END OF SHIFT. BED ALARM ON, CALL LIGHT WITHIN REACH OF PATIENT. SAFETY MEASURES IMPLEMENTED.
--- NOTE | 2018-04-28 16:16 | NUR ---
REPORT GIVEN TO TRAVEL PT. FAMILY AND PATIENT AWARE OF PENDING ADMISSION.
[2018-04-28 16:52] VITALS: BP 179/70
[2018-04-28] MEDS ORDERED: ACETAMINOPHEN 325 MG TABLET PO PRN (18:00)
[2018-04-28] MEDS ORDERED: ZOLPIDEM 5 MG TABLET PO PRN (18:00)
[2018-04-28] MEDS ORDERED: MAGNESIUM HYDROXIDE 30 ML LIQUID UDC PO PRN (18:00)
[2018-04-28] MEDS ORDERED: METFORMIN XR 500 MG TAB.SR.24H PO SCH (18:00)
[2018-04-28] MEDS ORDERED: ONDANSETRON 4 MG/2 ML VIAL IV PRN (18:00)
[2018-04-28] MEDS ORDERED: HYDROCODONE/APAP 5-325MG TABLET PO PRN (18:00)
--- NOTE | 2018-04-28 18:00 | NUR ---
ADMINISTERED LISINOPRIL & CARVEDILOL AT THIS TIME FOR INCREASED BP OF 177/70.
[2018-04-28] MEDS: LISINOPRIL 10 MG TABLET PO SCH (18:18)
[2018-04-28] MEDS: CARVEDILOL 6.25 MG TABLET PO SCH (18:19)
[2018-04-28 20:00] VITALS: BP 163/76
[2018-04-28] MEDS: ATORVASTATIN 10 MG TABLET PO SCH (21:24)
[2018-04-29 05:55] VITALS: BP 174/73
[2018-04-29 06:36] LABS: BASOPHILS % (AUTO) 0.5 % (0.0-2.0); EOSINOPHILS # (AUTO) 0.1 K/uL (0.0-0.7); EOSINOPHILS % (AUTO) 1.1 % (0.0-7.0); HEMATOCRIT 31.3 % (31.2-41.9); HEMOGLOBIN 10.4 g/dL (10.9-14.3); LYMPHOCYTES # (AUTO) 2.3 K/uL (20.0-40.0); LYMPHOCYTES % (AUTO) 38.7 % (20.5-51.5); MEAN CORPUSCULAR HEMOGLOBIN 30.2 uug (24.7-32.8); MEAN CORPUSCULAR HGB CONC 33 g/dL (32.3-35.6); MEAN CORPUSCULAR VOLUME 90.6 fL (75.5-95.3); MONOCYTES # (AUTO) 0.5 K/uL (2.0-10.0); NEUTROPHILS % (AUTO) 50.7 % (38.5-71.5); PLATELET COUNT (AUTO) 258 K/uL (179-408); RED BLOOD CELL COUNT(AUTO) 3.45 MIL/uL (3.63-4.92)
[2018-04-29 06:50] LABS: CARBON DIOXIDE 31 mmol/L (21-32); CHLORIDE 104 mmol/L (98-107); CHOLESTEROL 169 mg/dL (<200); CREATININE 0.8 mg/dL (0.6-1.3); GLUCOSE 100 mg/dL (74-106); HDL CHOLESTEROL 47 mg/dL (40-60); MAGNESIUM 1.8 mg/dL (1.8-2.4); PHOSPHOROUS 4.1 mg/dL (2.5-4.9); POTASSIUM 3.7 mmol/L (3.5-5.1); TRIGLYCERIDES 118 MG/DL (30-150); UREA NITROGEN, BLOOD 15 mg/dL (7-18)
[2018-04-29 07:33] VITALS: BP 174/78
[2018-04-29] MEDS: FOLIC ACID 1 MG TABLET PO SCH (08:00)
[2018-04-29] MEDS: LISINOPRIL 10 MG TABLET PO SCH (08:00)
[2018-04-29] MEDS: ASPIRIN 81 MG TAB.CHEW PO SCH (08:01)
[2018-04-29] MEDS: CARVEDILOL 6.25 MG TABLET PO SCH ×2 (08:01→17:41)
[2018-04-29] MEDS ORDERED: CARVEDILOL 6.25 MG TABLET PO SCH (09:00)
[2018-04-29 11:33] VITALS: BP 114/54
[2018-04-29 15:42] VITALS: BP 147/59
--- NOTE | 2018-04-29 18:43 | NUR ---
Pt observed resting in bed daughter at bedside. Dr. Chicas spoke with patient and daughter about medication and troponin levels. Pt stable at this time. Continue to monitor pt.
[2018-04-29 20:00] VITALS: BP 148/60
[2018-04-29] MEDS: ATORVASTATIN 10 MG TABLET PO SCH (20:18)
--- NOTE | 2018-04-29 20:26 | NUR ---
Received patient awake alert & oriented, no SOB denies any pain. Vital signs WNL Sinus rhythm on Tele HR 83 bpm. Assisted to the bathroom, patient voided. Will continue to monitor.
--- NOTE | 2018-04-29 22:16 | NUR ---
Patient still awake & stated she can't sleep. Offered sleeping meds but patient refused. Sinus rhythm on Tele.
[2018-04-30] VITALS: BP 134/53
[2018-04-30 04:00] VITALS: BP 116/62
[2018-04-30] MEDS: ASPIRIN 81 MG TAB.CHEW PO SCH (08:12)
[2018-04-30] MEDS: FOLIC ACID 1 MG TABLET PO SCH (08:12)
[2018-04-30] MEDS: CARVEDILOL 6.25 MG TABLET PO SCH (08:13)
[2018-04-30] MEDS: LISINOPRIL 10 MG TABLET PO SCH (08:13)
[2018-04-30] MEDS ORDERED: LISI10TA5 PO (10:01)
--- NOTE | 2018-04-30 10:30 | NUR ---
DISCHARGE NOTED. DAUGHTER TO PICK PATIENT UP AT 1500
[2018-04-30 11:38] VITALS: BP 140/58
[2018-04-30 15:45] VITALS: BP 151/56
--- NOTE | 2018-04-30 16:14 | NUR ---
DAUGHTER HERE TO TAKE PATIENT HOME. DISCHARGE PROTOCOL FOLLOWED. IV REMOVED WITH NO REDNESS OR IRRITATION NOTED. ALL BELONGINGS ACCOUNTED FOR AND SENT WITH PATIENT. PATIENT TAKEN DOWN IN WHEELCHAIR, LEAVING IN PRIVATE CAR WITH DAUGHTER.
[2018-05-01] MEDS ORDERED: METFORMIN XR 500 MG TAB.SR.24H PO SCH (18:00)
== END 2018-04-30 16:20 | disposition home or self-care (01) | DRG 281 ==
LOC: ER 13:26 → TELE3 16:11
PROVIDERS: ADMIT Nurse Practitioner Acute Care; ATTEND Nurse Practitioner Acute Care
DX: I16.0 Hypertensive urgency (principal); I21.A1 Myocardial infarction type 2; E44.1 Mild protein-calorie malnutrition; R55 Syncope and collapse; E88.09 Other disorders of plasma-protein metabolism, not elsewhere classified; Z91.19 Patient's noncompliance with other medical treatment and regimen; E78.5 Hyperlipidemia, unspecified; Z68.27 Body mass index [BMI] 27.0-27.9, adult; Z79.84 Long term (current) use of oral hypoglycemic drugs; E11.9 Type 2 diabetes mellitus without complications; Z79.4 Long term (current) use of insulin
CPT/HCPCS: 36415; 70030-TC; 71045; 83735; 84100; 85025; 93005; 93307; A4663; G0378

== ENCOUNTER 2021-01-05 13:32 | Inpatient (IN) | payer MEDICARE, OTHER ==
[~2021-01-05] VITALS: Ht 157.5 cm; Wt 63.5 kg
[~2021-01-05 13:32] MED LIST changes: -ACET-2154 PO; +AMLO-212 PO; -DEXT38GE12 PO; -FOLI1TAB16 PO; +FOLI1TAB94 PO; -GLUC1KIT IJ; -INSU200I SQ; -LISI-603 PO; +LISI10TA29 PO; +METF-494 PO; -METF-495 PO; -METH2.5T PO; -ONDA4TAB5 PO; -QUET25TA PO
--- NOTE | 2021-01-05 13:45 | NUR ---
Receved pt from snf for Swallen on rt leg awake fallow nommnd no sob
--- NOTE | 2021-01-05 13:50 | NUR ---
PT TRANSFER FROM [facility] pt awake no sob or distress at this time
--- NOTE | 2021-01-05 14:30 | NUR ---
blood drow by lab tach and cxray done daria causey sended to lab
[2021-01-05 14:32] LABS: HEMATOCRIT 24.1 % (31.2-41.9); MEAN CORPUSCULAR VOLUME 93.3 fL (75.5-95.3); PLATELET COUNT (AUTO) 371 K/uL (179-408)
[2021-01-05 14:33] LABS: CARBON DIOXIDE 27 mmol/L (21-32); CHLORIDE 100 mmol/L (98-107); CREATININE 0.7 mg/dL (0.6-1.3); GLUCOSE 189 mg/dL (74-106); UREA NITROGEN, BLOOD 18 mg/dL (7-18)
[2021-01-05 14:39] LABS: ALANINE AMINOTRANSFERASE 18 U/L (14-59); ALKALINE PHOSPHATASE 79 U/L (50-136); ASPARTATE AMINOTRANSFERASE 21 U/L (15-37); BILIRUBIN,DIRECT 0.1 mg/dL (0.0-0.2); BILIRUBIN,TOTAL 0.3 mg/dL (0.2-1.0); TOTAL PROTEIN, SERUM 5.8 g/dL (6.4-8.2)
[2021-01-05] MEDS ORDERED: FOLI1TAB94 PO (14:50)
[2021-01-05] MEDS ORDERED: ACET-2154 PO (14:50)
[2021-01-05] MEDS ORDERED: CHOL1CRY2 MC (14:50)
[2021-01-05] MEDS ORDERED: MULT-594 PO (14:50)
[2021-01-05] MEDS ORDERED: NIFE30TA2 PO (14:50)
[2021-01-05] MEDS ORDERED: INSU100V28 SUBCUT (14:50)
[2021-01-05] MEDS ORDERED: CLON0.1T PO (14:50)
[2021-01-05] MEDS ORDERED: ASPI-866 PO (14:50)
[2021-01-05] MEDS ORDERED: RIVA10TA PO (14:50)
[2021-01-05] MEDS ORDERED: MAGN400O6 PO (14:50)
[2021-01-05] MEDS ORDERED: ATOR20TA PO (14:50)
[2021-01-05] MEDS ORDERED: CARV12.5 PO (14:50)
[2021-01-05] MEDS ORDERED: GLIM1TAB PO (14:50)
[2021-01-05] MEDS ORDERED: [UNRECOGNIZED DRUG - OTHER] (14:50)
--- NOTE | 2021-01-05 15:00 | NUR ---
GILES at bed side condition up date by DR. Verduzco pt resting and asleepy
--- NOTE | 2021-01-05 16:00 | NUR ---
wating for telemetry bed pt condition vs stable no change ekg done
--- NOTE | 2021-01-05 17:15 | NUR ---
redness and swallen on RT foot and rt ankle TO ROOM 307 HAND OFF TO SIDDHARTH RAMIREZ VS SARAH C/O PAIN on lt hand no swallen
--- NOTE | 2021-01-05 17:30 | NUR ---
ADMITTED FROM [facility] VIA ER C/O RIGHT LEG SWELLING, ANEMIA. AWAKE ALERT BUT WEAK AND RESPONSES IS DELAYED WITH DAUGHTER AT BEDSIDE. VERY WEAK AND REQUIRES TOTAL ASSIST IN ALL AREAS OF ADLS. RIGHT LEG NOTED TO BE SWOLLEN WITH FAINT PULSE WARM TO TOUCH. HOOK ON MONITOR WHICH IS SR
[2021-01-05 18:14] VITALS: BP 151/70
[2021-01-05 18:25] VITALS: BP 157/70
[2021-01-05] MEDS ORDERED: CARV3.12 PO (19:08)
[2021-01-05] MEDS ORDERED: FERROUS (19:08)
[2021-01-05] MEDS ORDERED: MAGNESIUM HYDROXIDE 30 ML LIQUID UDC PO PRN (19:30)
--- NOTE | 2021-01-05 19:40 | NUR ---
Received patient lying in bed, AOx2, Central African speaking. Established-nurse patient rapport, oriented patient to bed and call light button. IV on right AC gauge 20. On room air, saturating at 95%, shows no signs of physical distress. On tele monitor, showing sinus rhythm. Temperature taken shows result of 100.4 F, acetaminophen was given. Collected urine specimen via catheterization and MRSA Swab, both were sent to lab. Safety measures and aspiration precautions initiated. Will continue to monitor.
[2021-01-05] MEDS ORDERED: ACETAMINOPHEN 325 MG TABLET PO PRN (19:45)
[2021-01-05 20:26] VITALS: BP 140/63
[2021-01-05 21:00] LABS: *BILIRUBIN,URIN NEGATIVE (NEGATIVE); *BLOOD, URINE NEGATIVE (NEGATIVE); *COLOR,URINE YELLOW (YELLOW); *KETONES,URINE NEGATIVE (NEGATIVE); LEUKOCYTE ESTERASE ,URINE NEGATIVE (NEGATIVE); NITRITE, URINE NEGATIVE (NEGATIVE); UGLUCOSE NEGATIVE (NEGATIVE)
[2021-01-05 21:06] LABS: *CLARITY,URINE SLIGHTLY HAZY (CLEAR); BACTERIA,URINE FEW /HPF (NONE SEEN); RBC,URINE 0-3 /HPF (0-3); SQUAMOUS EPITHELIAL CELL,UR FEW /HPF (NONE SEEN)
[2021-01-05] MEDS: RIVAROXABAN 10 MG TABLET PO SCH (21:30)
[2021-01-05] MEDS: ATORVASTATIN 40 MG TABLET PO SCH (21:31)
[2021-01-05] MEDS: CARVEDILOL 3.125 MG TABLET PO SCH (21:31)
[2021-01-05] MEDS: CEFEPIME HCL 1 G in IV DEXTROSE 5% 50 ML IV SCH (22:00)
--- NOTE | 2021-01-05 22:00 | NUR ---
IV site on right AC was dislodged, reinserted IV site on right forearm gauge 22
[2021-01-05] MEDS ORDERED: CEFEPIME HCL 1 G VIAL ONE (22:49)
--- NOTE | 2021-01-06 | NUR ---
Called Adriano Braden to obtain patient's medical record for admission purposes. Was able to obtain patient's daughter contact stanley - Margarette Mann .
[2021-01-06 00:23] VITALS: BP 110/50
[2021-01-06 04:51] VITALS: BP 118/49
[2021-01-06] MEDS ORDERED: CEFEPIME HCL 1 G VIAL ONE (05:36)
[2021-01-06] MEDS: CEFEPIME HCL 1 G in IV DEXTROSE 5% 50 ML IV SCH ×3 (06:01→22:16)
--- NOTE | 2021-01-06 06:37 | NUR ---
Patient is easily aroused, however, non-communicative. Reoriented patient to place and time. All due medications were given as ordered. Safety measures and aspiration precautions were maintained.
[2021-01-06 08:10] LABS: THYROID STIMULATING HORMONE 2.228 mIU/mL (0.358-3.740)
[2021-01-06] MEDS: MULTIVITAMINS,THERAPEUTIC TABLET PO SCH (08:44)
[2021-01-06] MEDS: FOLIC ACID 1 MG TABLET PO SCH (08:44)
[2021-01-06] MEDS: RIVAROXABAN 10 MG TABLET PO SCH (08:44)
[2021-01-06] MEDS: CARVEDILOL 3.125 MG TABLET PO SCH ×2 (08:45→20:35)
[2021-01-06] MEDS: NIFEdipine XL 30 MG TABSR PO SCH (08:45)
[2021-01-06] MEDS: GLIMEPIRIDE 2 MG TABLET PO SCH (08:45)
[2021-01-06 08:58] LABS: MEAN CORPUSCULAR HEMOGLOBIN 31.3 uug (24.7-32.8); MEAN CORPUSCULAR VOLUME 93.9 fL (75.5-95.3); PLATELET COUNT (AUTO) 383 K/uL (179-408)
[2021-01-06] MEDS ORDERED: ASPIRIN EC 81 MG TABLET.DR PO SCH (09:00)
[2021-01-06] MEDS ORDERED: FUROSEMIDE 20 MG/2 ML VIAL IV PRN (09:30)
[2021-01-06] MEDS ORDERED: FERR324T17 PO (09:40)
--- NOTE | 2021-01-06 09:46 | NUR ---
received awake and responsive. no resp distress. pulled out her iv line. reoriented prn. minimal bleeding noted applied gauze pressure and tape. no s/sx of pain noted. safety precautions in place. cont to monitor.
[2021-01-06 09:49] LABS: BILIRUBIN,TOTAL 0.3 mg/dL (0.2-1.0); CREATININE 0.9 mg/dL (0.6-1.3); MAGNESIUM 2.1 mg/dL (1.8-2.4); POTASSIUM 4.2 mmol/L (3.5-5.1); TOTAL PROTEIN, SERUM 5.4 g/dL (6.4-8.2)
--- NOTE | 2021-01-06 11:03 | NUR ---
viscose cellar charge hand and rn attempted several times to reinsert iv line but unable. informed dr. jones with order for midline noted and carried. reclamation supervisor made aware.
[2021-01-06 11:16] LABS: EOSINOPHILS % (MANUAL) 3 % (0-8); LYMPHOCYTES % (MANUAL) 50 % (20-40); MONOCYTES % (MANUAL) 6 % (2-10); NEUTROPHILS % (MANUAL) 41 % (42-75)
[2021-01-06 11:35] VITALS: BP 121/48
--- NOTE | 2021-01-06 12:30 | NUR ---
Trinidad Pfeiffer here and aware of low hemoglobin. states her mother doing much better today than yesterday and requested to repeat h/h. dr. jones made aware with order for stat cbc noted and carried.
[2021-01-06 13:46] LABS: HEMATOCRIT 24.3 % (31.2-41.9); MEAN CORPUSCULAR HEMOGLOBIN 30.8 uug (24.7-32.8); MEAN CORPUSCULAR VOLUME 93.4 fL (75.5-95.3); PLATELET COUNT (AUTO) 391 K/uL (179-408)
[2021-01-06 15:31] VITALS: BP 122/50
--- NOTE | 2021-01-06 16:15 | NUR ---
cbc relayed to dr. jones noted with hgb 8.0. troy at lab made aware of result. h/h ordered.
[2021-01-06 17:26] LABS: HEMATOCRIT 23.3 % (31.2-41.9)
--- NOTE | 2021-01-06 17:57 | NUR ---
h/h result hgb 7.[address] jones no new orders received at this time.
--- NOTE | 2021-01-06 18:38 | NUR ---
comfortably watching tv. no sob or pain. sr on monitor. char midline intact. atb merrem administered as ordered. no adverse/allergic reaction noted. safety precautions kept. needs attended. cont to monitor.
--- NOTE | 2021-01-06 19:30 | NUR ---
Received patient lying in bed watching TV. No acute distress noted at this time. Patient denies SOB, chest pain or dizziness. On tele monitor, showing sinus rhythm with HR of 80bpm. On room air, saturating at 98%. Safety and aspiration precaution measures initiated. Bed in locked position and call light within reach. Will continue to monitor.
[2021-01-06 20:18] VITALS: BP 132/60
[2021-01-06] MEDS: ATORVASTATIN 40 MG TABLET PO SCH (20:27)
[2021-01-06] MEDS ORDERED: ZOLPIDEM 5 MG TABLET PO PRN (23:00)
--- NOTE | 2021-01-06 23:00 | NUR ---
Patient reports having insomnia, requested for pain medication. Reviewed medication order, no PRN medication for insomnia. Notified LEAD MACHINIST transitional care liaison, LEAD MACHINIST ordered Ambien 5mg PO PRN.
[2021-01-07 00:34] VITALS: BP 128/63
[2021-01-07 04:00] VITALS: BP 130/57
[2021-01-07] MEDS: CEFEPIME HCL 1 G in IV DEXTROSE 5% 50 ML IV SCH ×3 (06:03→21:12)
--- NOTE | 2021-01-07 06:43 | NUR ---
Patient slept through the night, with no sleeping medication needed. AO2-3x. Comoran speaking. Reoriented patient to time and place. No acute distress noted at this time. IV on L UA midline patent and intact. All due medications were given as ordered. Safety measures and aspiration precautions were maintained. Will endorse to day shift nurse.
--- NOTE | 2021-01-07 07:56 | NUR ---
received asleep easily arousable no acute distress. sr on monitor. char midline intact. no s/sx of pain or sob. safety precautions in place. kept comfortable.
[2021-01-07] MEDS: GLIMEPIRIDE 2 MG TABLET PO SCH (09:17)
[2021-01-07] MEDS: CARVEDILOL 3.125 MG TABLET PO SCH ×2 (09:17→21:03)
[2021-01-07] MEDS: NIFEdipine XL 30 MG TABSR PO SCH (09:17)
[2021-01-07] MEDS: FOLIC ACID 1 MG TABLET PO SCH (09:17)
[2021-01-07] MEDS: MULTIVITAMINS,THERAPEUTIC TABLET PO SCH (09:21)
[2021-01-07] MEDS: RIVAROXABAN 10 MG TABLET PO SCH (09:21)
--- NOTE | 2021-01-07 10:15 | NUR ---
received call from terrie from [facility] with result: us lower extremity positive for right leg dvt extending from proximal superficial femoral vein to popliteal vein relayed result to dr. jones no orders received at this time.
[2021-01-07 11:30] VITALS: BP 97/48
[2021-01-07 11:53] LABS: HEMATOCRIT 24.8 % (31.2-41.9); MEAN CORPUSCULAR HEMOGLOBIN 31.2 uug (24.7-32.8); MEAN CORPUSCULAR VOLUME 94.3 fL (75.5-95.3); PLATELET COUNT (AUTO) 411 K/uL (179-408)
[2021-01-07 12:11] LABS: CREATININE 0.8 mg/dL (0.6-1.3); MAGNESIUM 1.9 mg/dL (1.8-2.4); PHOSPHOROUS 3.8 mg/dL (2.5-4.9)
--- NOTE | 2021-01-07 12:52 | NUR ---
WOUND CARE CONSULT: PT SEEN FOR DISCOLORATION TO RT HEEL WHICH IS BROWN AND NONTENDER. NO DRAINAGE OR ERYTHEMA NOTED. RECOMMENDATIONS MADE FOR SKIN PROTECTION. DISCUSSED WITH NURSING STAFF. MD IN AGREEMENT WITH PLAN OF CARE.
[2021-01-07] MEDS ORDERED: Z GUARD REMEDY PASTE 57 GM TUBE TOP PRN (13:00)
--- NOTE | 2021-01-07 13:00 | NUR ---
noted with brown discoloration on right heel. non tender, skin is intact. willian from wound care is on the floor and consulted. no s/sx of pain. cont to monitor.
[2021-01-07 15:33] VITALS: BP 125/66
--- NOTE | 2021-01-07 18:26 | NUR ---
awake watching tv. no acute distress. no s/sx of pain. iv intact atb tolerated no adverse/allergic reaction. safety precautions kept. needs attended. call light in reach.
--- NOTE | 2021-01-07 18:52 | NUR ---
Dtr Margarette visiting and updated. no complaints.
[2021-01-07 20:28] VITALS: BP 92/50
[2021-01-07 20:50] VITALS: BP 139/52
[2021-01-07] MEDS: ATORVASTATIN 40 MG TABLET PO SCH (20:58)
[2021-01-07] MEDS: Z GUARD REMEDY PASTE 57 GM TUBE TOP SCH (21:04)
[2021-01-08] MEDS: CEFEPIME HCL 1 G in IV DEXTROSE 5% 50 ML IV SCH ×3 (05:13→21:02)
[2021-01-08 06:16] VITALS: BP 144/56
[2021-01-08 06:40] LABS: HEMATOCRIT 22.4 % (31.2-41.9); MEAN CORPUSCULAR HEMOGLOBIN 32.8 uug (24.7-32.8); MEAN CORPUSCULAR VOLUME 93.1 fL (75.5-95.3); PLATELET COUNT (AUTO) 396 K/uL (179-408)
--- NOTE | 2021-01-08 06:45 | NUR ---
Slept well throughout the night, AO x 2/3, compliant with medication and care, denies any pain or discomfort. No signs of acute distress noted. Call lights within reach, safety measures maintained, will endorse to am shift.
[2021-01-08 06:56] LABS: BILIRUBIN,TOTAL 0.3 mg/dL (0.2-1.0); CREATININE 0.7 mg/dL (0.6-1.3); MAGNESIUM 2.1 mg/dL (1.8-2.4); PHOSPHOROUS 3.4 mg/dL (2.5-4.9); POTASSIUM 3.9 mmol/L (3.5-5.1); TOTAL PROTEIN, SERUM 5.3 g/dL (6.4-8.2)
--- NOTE | 2021-01-08 07:41 | NUR ---
received asleep easily arousable. no sob/pain. iv intact. safety measures in place. kept comfortable. call light in reach.
[2021-01-08] MEDS: FOLIC ACID 1 MG TABLET PO SCH (08:53)
[2021-01-08] MEDS: RIVAROXABAN 10 MG TABLET PO SCH (08:55)
[2021-01-08] MEDS: GLIMEPIRIDE 2 MG TABLET PO SCH (09:00)
[2021-01-08] MEDS: CARVEDILOL 3.125 MG TABLET PO SCH ×2 (09:01→20:06)
[2021-01-08] MEDS: PROTEIN SUPPLEMENT (PROSTAT) 30 ML LIQUID PO SCH ×3 (09:01→17:10)
[2021-01-08] MEDS: MULTIVITAMINS,THERAPEUTIC TABLET PO SCH (09:01)
[2021-01-08] MEDS: NIFEdipine XL 30 MG TABSR PO SCH (09:03)
[2021-01-08] MEDS: Z GUARD REMEDY PASTE 57 GM TUBE TOP SCH ×2 (09:03→20:12)
--- NOTE | 2021-01-08 10:05 | NUR ---
Per Dr. Henning, ok to proceed with PT eval. Therapist made aware.
[2021-01-08 11:34] VITALS: BP 101/47
[2021-01-08 12:18] LABS: *OCCULT BLOOD STOOL NEGATIVE (NEGATIVE)
[2021-01-08 16:00] VITALS: BP 118/54
[2021-01-08] MEDS ORDERED: ACID1TAB4 PO (16:53)
[2021-01-08] MEDS ORDERED: ZOLP5TAB2 PO (16:53)
[2021-01-08] MEDS ORDERED: CEFE1VIA3 IV (16:53)
[2021-01-08] MEDS ORDERED: MENT71OI TOP (16:53)
--- NOTE | 2021-01-08 18:59 | NUR ---
per md for discharge to acute rehab. no acute distress. no sob or pain. safety measures in place. needs attended to.
[2021-01-08 20:00] VITALS: BP 124/57
[2021-01-08] MEDS: ATORVASTATIN 40 MG TABLET PO SCH (20:06)
[2021-01-09 04:00] VITALS: BP 146/63
== END 2021-01-08 22:00 | DRG 177 ==
LOC: ER 13:34 → TELE3 17:24 → MEDSURG3 01-07 10:55
PROVIDERS: ADMIT Internal Medicine; ATTEND Internal Medicine
PROC: 05HC33Z Insertion of Infusion Device into Left Basilic Vein, Percutaneous Approach (ICD-10-PCS; principal; 2021-01-06)
DX: J69.0 Pneumonitis due to inhalation of food and vomit (principal); G92.8 Other toxic encephalopathy; I21.A1 Myocardial infarction type 2; I82.411 Acute embolism and thrombosis of right femoral vein; I82.431 Acute embolism and thrombosis of right popliteal vein; D68.59 Other primary thrombophilia; I69.351 Hemiplegia and hemiparesis following cerebral infarction affecting right dominant side; R47.01 Aphasia; D64.9 Anemia, unspecified; E11.9 Type 2 diabetes mellitus without complications; E66.9 Obesity, unspecified; E78.5 Hyperlipidemia, unspecified; I11.9 Hypertensive heart disease without heart failure; M19.90 Unspecified osteoarthritis, unspecified site; Z20.822 Contact with and (suspected) exposure to COVID-19; Z79.4 Long term (current) use of insulin; Z79.82 Long term (current) use of aspirin; Z79.84 Long term (current) use of oral hypoglycemic drugs; Z79.899 Other long term (current) drug therapy; M79.642 Pain in left hand; R62.7 Adult failure to thrive; R82.81 Pyuria
CPT/HCPCS: 36415; 70030-TC; 71045; 73130; 82378; 83550; 83735; 84100; 84443; 85018; 85025; 85730; 86850; 86900; 86901; 87086; 93005; 97161; A4663; A6209; C1758; G0378; J0692; J7040; J7042; J7050; J7060

== ENCOUNTER 2021-01-08 14:04 | Inpatient (IN) | payer MEDICARE, OTHER ==
[~2021-01-08] VITALS: Ht 167.6 cm; Wt 74.2 kg
[~2021-01-08 14:04] MED LIST changes: +ACET-2154 PO; -AMLO-212 PO; +ASPI-866 PO; +ATOR20TA PO; +CARV3.12 PO; -CARV6.25 PO; +CHOL1CRY2 MC; +CLON0.1T PO; +FERR324T17 PO; +GLIM1TAB PO; +INSU100V28 SUBCUT; -LISI10TA29 PO; +MAGN400O6 PO; -METF-494 PO; +MULT-594 PO; +NIFE30TA2 PO; +RIVA10TA PO; -ROSU10TA2 PO; +[UNRECOGNIZED DRUG - OTHER]
[2021-01-08] MEDS ORDERED: ACID1TAB4 PO (16:53)
[2021-01-08] MEDS ORDERED: ZOLP5TAB2 PO (16:53)
[2021-01-08] MEDS ORDERED: MENT71OI TOP (16:53)
[2021-01-08] MEDS ORDERED: CEFE1VIA3 IV (16:53)
[2021-01-08 20:00] VITALS: BP 124/57
[2021-01-08] MEDS ORDERED: Z GUARD REMEDY PASTE 57 GM TUBE TOP PRN ×2 (20:30→21:30)
[2021-01-08] MEDS ORDERED: ZOLPIDEM 5 MG TABLET PO PRN (20:30)
[2021-01-08] MEDS ORDERED: MAGNESIUM HYDROXIDE 30 ML LIQUID UDC PO PRN (20:30)
[2021-01-08] MEDS ORDERED: ACETAMINOPHEN 325 MG TABLET-SA PATIENTS-PAIN ONLY PO PRN (20:30)
[2021-01-08] MEDS: CARVEDILOL 3.125 MG TABLET PO SCH (21:00)
[2021-01-08] MEDS ORDERED: CEFEPIME HCL 1 G VIAL IV SCH (21:00)
[2021-01-08] MEDS ORDERED: Medication Not On Formulary EA (Ferrous Gluconate 324 MG) PO SCH (21:00)
[2021-01-08] MEDS: CEFEPIME HCL 1 G in IV DEXTROSE 5% 50 ML IV SCH (21:00)
[2021-01-09 04:00] VITALS: BP 146/63
--- NOTE | 2021-01-09 04:30 | NUR ---
Received a 89 yr old female admitted to ARU from med-surg with admitting diagnosis of generalized weakness, deconditioning, and fever, UTI. AAOx3 with some periods of confusion. Daughter in with patient, she said she wants her mother to have 3 days more of IVABT. VSS. Needs attended. Will relay message to Dr Henning. Patient incontinent of bowel and bladder. Kept clean and dry. No BM noted this shift. Kept comfortable. Fall precautions maintained.
[2021-01-09 08:17] VITALS: BP 153/63
[2021-01-09] MEDS: RIVAROXABAN 10 MG TABLET PO SCH (09:00)
[2021-01-09] MEDS ORDERED: Medication Not On Formulary EA (Multivitamins (Multivitamin) 1 EACH) PO SCH (09:00)
[2021-01-09] MEDS ORDERED: Medication Not On Formulary EA (Glimepiride (Amaryl) 1 MG) PO SCH (09:00)
[2021-01-09] MEDS: NIFEdipine XL 30 MG TABSR PO SCH (09:40)
[2021-01-09] MEDS: ACIDOPHILUS/BULGARICUS CHEW TAB PO SCH (09:41)
[2021-01-09] MEDS: GLIMEPIRIDE 2 MG TABLET PO SCH (09:42)
[2021-01-09] MEDS: CARVEDILOL 3.125 MG TABLET PO SCH ×2 (09:42→20:57)
[2021-01-09] MEDS: CEFEPIME HCL 1 G in IV DEXTROSE 5% 50 ML IV SCH ×2 (09:43→20:56)
[2021-01-09] MEDS: MULTIVITAMINS,THERAPEUTIC TABLET PO SCH (09:44)
[2021-01-09] MEDS: FOLIC ACID 1 MG TABLET PO SCH (09:44)
[2021-01-09] MEDS: FERROUS GLUCONATE 324 MG TABLET PO SCH (10:02)
--- NOTE | 2021-01-09 10:20 | NUR ---
Received pt resting bed. patient is alert and oriented x3 . On RA sating 98%. patient is Mosotho speaking, but able to make simple needs known . No acute distress noted. Denies pain/ discomfort continue on ATB IV therapy for UTI. Assisted by PT up out Bed, safely back in bed. had BM x1 good january care given. Bed alarm on. Will continue to monitor.
--- NOTE | 2021-01-09 14:49 | NUR ---
INTERDISCIPLINARY TEAM CONFERENCE
[2021-01-09 16:00] VITALS: BP 119/48
--- NOTE | 2021-01-09 18:20 | NUR ---
patient remained stable through the shift. continue on room air 02 sating 98%. Assisted with all his needs incontinent of B&B . Kept call light within reach. All due meds given. No distress identified. Safety measures maintained. No pain identified. Will endorse to the next shift for continuity of care.
[2021-01-09 20:00] VITALS: BP 119/56
[2021-01-10 04:00] VITALS: BP 133/53
--- NOTE | 2021-01-10 06:40 | NUR ---
Pt slept throughout the night, easily arousable for care. No s/sx of pain and discomfort noted. Midline one SYLVIE remains patent and intact. All due meds given on time and tolerated well. Needs attended. Call light placed within reach. Frequent visual checks done. Will endorse to next shift for continuity of care.
[2021-01-10 08:00] VITALS: BP 143/62
[2021-01-10] MEDS: CEFEPIME HCL 1 G in IV DEXTROSE 5% 50 ML IV SCH (08:46)
[2021-01-10] MEDS: FOLIC ACID 1 MG TABLET PO SCH (08:48)
[2021-01-10] MEDS: MULTIVITAMINS,THERAPEUTIC TABLET PO SCH (08:48)
[2021-01-10] MEDS: GLIMEPIRIDE 2 MG TABLET PO SCH (08:49)
[2021-01-10] MEDS: ACIDOPHILUS/BULGARICUS CHEW TAB PO SCH (08:49)
[2021-01-10] MEDS: FERROUS GLUCONATE 324 MG TABLET PO SCH (08:49)
[2021-01-10] MEDS: CARVEDILOL 3.125 MG TABLET PO SCH ×2 (08:54→20:53)
[2021-01-10] MEDS: NIFEdipine XL 30 MG TABSR PO SCH ×2 (10:20→11:35)
[2021-01-10] MEDS: RIVAROXABAN 10 MG TABLET PO SCH (10:57)
[2021-01-10 16:00] VITALS: BP 120/60
[2021-01-10 20:00] VITALS: BP 124/60
[2021-01-11 04:00] VITALS: BP 132/61
[2021-01-11 06:38] LABS: HEMATOCRIT 22.6 % (31.2-41.9); MEAN CORPUSCULAR HEMOGLOBIN 31.3 uug (24.7-32.8); MEAN CORPUSCULAR VOLUME 93.1 fL (75.5-95.3); PLATELET COUNT (AUTO) 437 K/uL (179-408)
[2021-01-11 06:51] LABS: BILIRUBIN,TOTAL 0.2 mg/dL (0.2-1.0); CREATININE 0.9 mg/dL (0.6-1.3); PHOSPHOROUS 3.5 mg/dL (2.5-4.9); POTASSIUM 3.9 mmol/L (3.5-5.1); TOTAL PROTEIN, SERUM 5.5 g/dL (6.4-8.2)
[2021-01-11 07:55] VITALS: BP 139/65
[2021-01-11] MEDS: ACIDOPHILUS/BULGARICUS CHEW TAB PO SCH (08:17)
[2021-01-11] MEDS: CARVEDILOL 3.125 MG TABLET PO SCH ×2 (08:18→20:04)
[2021-01-11] MEDS: GLIMEPIRIDE 2 MG TABLET PO SCH (08:19)
[2021-01-11] MEDS: FOLIC ACID 1 MG TABLET PO SCH (08:20)
[2021-01-11] MEDS: RIVAROXABAN 10 MG TABLET PO SCH (08:20)
[2021-01-11] MEDS: MULTIVITAMINS,THERAPEUTIC TABLET PO SCH (08:20)
[2021-01-11] MEDS: FERROUS GLUCONATE 324 MG TABLET PO SCH (08:22)
[2021-01-11] MEDS: NIFEdipine XL 30 MG TABSR PO SCH ×2 (08:30→10:00)
--- NOTE | 2021-01-11 14:06 | NUR ---
INDIVIDUALIZED PLAN OF CARE
[2021-01-11 15:20] VITALS: BP 110/40
--- NOTE | 2021-01-11 18:50 | NUR ---
Patient remains alert, oriented x1 to self, on room air, not in any form of distress, on room air. No complain of any pain or discomfort. Patient is compliant with medications and care. She participated with PT and OT. Needs attended to. Safety measures maintained. Call light and frequently used items placed within reach.
[2021-01-11 20:23] VITALS: BP 123/49
[2021-01-12 05:18] VITALS: BP 153/67
[2021-01-12] MEDS: NIFEdipine XL 30 MG TABSR PO SCH (05:51)
--- NOTE | 2021-01-12 06:01 | NUR ---
Procardia XL given ahead of schedule, BP is 153/67. No PRN medication order for elevated BP. Will endorse to next shift.
[2021-01-12 08:00] VITALS: BP 113/46
[2021-01-12] MEDS: MULTIVITAMINS,THERAPEUTIC TABLET PO SCH (08:19)
[2021-01-12] MEDS: FOLIC ACID 1 MG TABLET PO SCH (08:19)
[2021-01-12] MEDS: GLIMEPIRIDE 2 MG TABLET PO SCH (08:19)
[2021-01-12] MEDS: FERROUS GLUCONATE 324 MG TABLET PO SCH (08:20)
[2021-01-12] MEDS: ACIDOPHILUS/BULGARICUS CHEW TAB PO SCH (08:20)
[2021-01-12] MEDS: RIVAROXABAN 10 MG TABLET PO SCH (08:22)
[2021-01-12] MEDS: CARVEDILOL 3.125 MG TABLET PO SCH ×2 (08:24→20:50)
[2021-01-12 15:58] VITALS: BP 128/57
[2021-01-12 20:31] VITALS: BP 137/60
[2021-01-13 04:37] VITALS: BP 142/68
--- NOTE | 2021-01-13 06:58 | NUR ---
Patient slept well oriented x1 to self, on room air, no s/s of distress noted.. No complain of any pain or discomfort. Patient incontinent to both Both B & B. Pericare provided. All needs anticipated and met accordingly.
[2021-01-13 09:00] VITALS: BP 148/63
[2021-01-13] MEDS: NIFEdipine XL 30 MG TABSR PO SCH (10:01)
[2021-01-13] MEDS: MULTIVITAMINS,THERAPEUTIC TABLET PO SCH (10:01)
[2021-01-13] MEDS: ACIDOPHILUS/BULGARICUS CHEW TAB PO SCH (10:01)
[2021-01-13] MEDS: GLIMEPIRIDE 2 MG TABLET PO SCH (10:01)
[2021-01-13] MEDS: CARVEDILOL 3.125 MG TABLET PO SCH ×2 (10:01→20:46)
[2021-01-13] MEDS: RIVAROXABAN 10 MG TABLET PO SCH (10:03)
[2021-01-13] MEDS: FOLIC ACID 1 MG TABLET PO SCH (10:03)
[2021-01-13] MEDS: FERROUS GLUCONATE 324 MG TABLET PO SCH (10:05)
[2021-01-13 16:00] VITALS: BP 148/66
--- NOTE | 2021-01-13 19:00 | NUR ---
Received patient sleeping in bed. Awake, alert, oriented to name however not to place or time. Reoriented patient to place and time, patient nodded. No acute distress noted at this time. Patient denies SOB, chest pain or dizziness. IV site on SYLVIE midline patent and intact. Safety precautions and comfort measures initiated. Bed in locked position, call light button and frequently used items within reach. Will continue to monitor.
[2021-01-13 20:11] VITALS: BP 125/57
[2021-01-14 04:22] VITALS: BP 150/68
[2021-01-14 06:34] LABS: HEMATOCRIT 24.1 % (31.2-41.9); MEAN CORPUSCULAR HEMOGLOBIN 31.7 uug (24.7-32.8); MEAN CORPUSCULAR VOLUME 94.1 fL (75.5-95.3); PLATELET COUNT (AUTO) 433 K/uL (179-408)
[2021-01-14 06:58] LABS: BILIRUBIN,TOTAL 0.2 mg/dL (0.2-1.0); MAGNESIUM 2.1 mg/dL (1.8-2.4); PHOSPHOROUS 3.8 mg/dL (2.5-4.9); POTASSIUM 4.1 mmol/L (3.5-5.1); TOTAL PROTEIN, SERUM 5.8 g/dL (6.4-8.2)
--- NOTE | 2021-01-14 07:04 | NUR ---
Patient slept through the night with no complaints. All due medications were given as ordered. All needs were attended to and met. Safety precautions and comfort measures maintained. Will endorse to day shift.
[2021-01-14 08:00] VITALS: BP 154/61
[2021-01-14] MEDS: GLIMEPIRIDE 2 MG TABLET PO SCH (08:15)
--- NOTE | 2021-01-14 08:15 | NUR ---
NSG: Received Patient lying on bed.patient is alert and oriented x1 to self only, on room air, no s/s of distress noted. No complain of any pain or discomfort. Patient incontinent to both Both B & B. assisted with adl's. good january care provided.continue plan of care.
[2021-01-14] MEDS: FOLIC ACID 1 MG TABLET PO SCH (08:16)
[2021-01-14] MEDS: RIVAROXABAN 10 MG TABLET PO SCH (08:16)
[2021-01-14] MEDS: NIFEdipine XL 30 MG TABSR PO SCH (08:17)
[2021-01-14] MEDS: MULTIVITAMINS,THERAPEUTIC TABLET PO SCH (08:17)
[2021-01-14] MEDS: ACIDOPHILUS/BULGARICUS CHEW TAB PO SCH (08:18)
[2021-01-14] MEDS: CARVEDILOL 3.125 MG TABLET PO SCH ×2 (08:22→20:49)
[2021-01-14] MEDS: FERROUS GLUCONATE 324 MG TABLET PO SCH (09:08)
[2021-01-14 16:00] VITALS: BP 115/51
[2021-01-14 20:06] VITALS: BP 115/48
[2021-01-15 04:06] VITALS: BP 131/50
[2021-01-15 08:00] VITALS: BP 145/63
[2021-01-15] MEDS: RIVAROXABAN 10 MG TABLET PO SCH (09:23)
[2021-01-15] MEDS: ACIDOPHILUS/BULGARICUS CHEW TAB PO SCH (09:27)
[2021-01-15] MEDS: GLIMEPIRIDE 2 MG TABLET PO SCH (09:27)
[2021-01-15] MEDS: MULTIVITAMINS,THERAPEUTIC TABLET PO SCH (09:28)
[2021-01-15] MEDS: FOLIC ACID 1 MG TABLET PO SCH (09:29)
[2021-01-15] MEDS: FERROUS GLUCONATE 324 MG TABLET PO SCH (09:29)
[2021-01-15] MEDS: CARVEDILOL 3.125 MG TABLET PO SCH ×2 (09:34→21:00)
[2021-01-15] MEDS: NIFEdipine XL 30 MG TABSR PO SCH (13:33)
[2021-01-15 15:59] VITALS: BP 125/64
--- NOTE | 2021-01-15 19:25 | NUR ---
Received pt resting in bed, AO x 1, on room air, SYLVIE midline intact and patent. no signs of acute distress noted at this time. Call lights within reach, safety measures initiated. Belongings placed by bedside within reach.
[2021-01-16 04:17] VITALS: BP 147/60
--- NOTE | 2021-01-16 06:00 | NUR ---
Slept throughout the night, AO x 2, on room air saturating at 98%, SYLVIE midline intact. Compliant with care. Repositioned q2h. No signs of acute distress. Call lights within reach, safety measures maintained. Will endorse to am shift.
[2021-01-16 07:53] VITALS: BP 156/69
[2021-01-16] MEDS: GLIMEPIRIDE 2 MG TABLET PO SCH (08:35)
[2021-01-16] MEDS: RIVAROXABAN 10 MG TABLET PO SCH (08:35)
[2021-01-16] MEDS: ACIDOPHILUS/BULGARICUS CHEW TAB PO SCH (08:36)
[2021-01-16] MEDS: FOLIC ACID 1 MG TABLET PO SCH (08:36)
[2021-01-16] MEDS: MULTIVITAMINS,THERAPEUTIC TABLET PO SCH (08:36)
[2021-01-16] MEDS: FERROUS GLUCONATE 324 MG TABLET PO SCH (08:36)
[2021-01-16] MEDS: NIFEdipine XL 30 MG TABSR PO SCH (08:36)
[2021-01-16] MEDS: CARVEDILOL 3.125 MG TABLET PO SCH ×2 (08:36→20:01)
--- NOTE | 2021-01-16 08:53 | NUR ---
INTERDISCIPLINARY TEAM CONFERENCE
[2021-01-16 16:00] VITALS: BP 138/66
--- NOTE | 2021-01-16 18:04 | NUR ---
The patient remained stable during the shift. No acute distress identified. Denies pain. CG at bedside. Dressing change to both heels, no open skin identified. Kept call light within reach. Safety precaution maintained. All due meds given. All needs attended. Endorsed to the next shift for continuity of care.
--- NOTE | 2021-01-16 19:35 | NUR ---
Received pt lying in bed with family by bedside. On room air. SYLVIE midline intact and patent. No signs of acute distress. Denies pain and discomfort. Air mattress on. Call lights within reach, safety measures initiated.
[2021-01-16 20:10] VITALS: BP 126/56
[2021-01-17 04:15] VITALS: BP 113/59
[2021-01-17] MEDS: FERROUS GLUCONATE 324 MG TABLET PO SCH (08:28)
[2021-01-17] MEDS: RIVAROXABAN 10 MG TABLET PO SCH (08:29)
[2021-01-17] MEDS: MULTIVITAMINS,THERAPEUTIC TABLET PO SCH (08:30)
[2021-01-17] MEDS: FOLIC ACID 1 MG TABLET PO SCH (08:30)
[2021-01-17] MEDS: NIFEdipine XL 30 MG TABSR PO SCH (08:30)
[2021-01-17] MEDS: GLIMEPIRIDE 2 MG TABLET PO SCH (08:30)
[2021-01-17] MEDS: ACIDOPHILUS/BULGARICUS CHEW TAB PO SCH (08:30)
[2021-01-17 08:33] VITALS: BP 125/65
[2021-01-17] MEDS: CARVEDILOL 3.125 MG TABLET PO SCH ×2 (08:40→21:25)
[2021-01-17 15:53] VITALS: BP 124/51
--- NOTE | 2021-01-17 18:02 | NUR ---
PATIENT CONTINUE TO TOLERATE PT, OT ST SCHEDULED. SEE NOTES
--- NOTE | 2021-01-17 19:00 | NUR ---
RECD AWAKE IN BED, ALERT, ACUTE DISTRESS NOTED.NEEDS ATTENDED TO,FAMILY AT BEDSIDE.MIDLINE ON RT.UPPER ARM INTACT.RESTED FAIRLY WELL.
[2021-01-17 20:10] VITALS: BP 123/57
[2021-01-18 04:15] VITALS: BP 123/55
--- NOTE | 2021-01-18 06:06 | NUR ---
uneventful nite, rested fairly well.no complaints made.
[2021-01-18 07:58] VITALS: BP 142/69
[2021-01-18] MEDS: ACIDOPHILUS/BULGARICUS CHEW TAB PO SCH (08:20)
[2021-01-18] MEDS: NIFEdipine XL 30 MG TABSR PO SCH (08:20)
[2021-01-18] MEDS: RIVAROXABAN 10 MG TABLET PO SCH (08:21)
[2021-01-18] MEDS: FERROUS GLUCONATE 324 MG TABLET PO SCH (08:21)
[2021-01-18] MEDS: MULTIVITAMINS,THERAPEUTIC TABLET PO SCH (08:21)
[2021-01-18] MEDS: GLIMEPIRIDE 2 MG TABLET PO SCH (08:21)
[2021-01-18] MEDS: CARVEDILOL 3.125 MG TABLET PO SCH ×2 (08:22→20:00)
[2021-01-18] MEDS: FOLIC ACID 1 MG TABLET PO SCH (08:22)
[2021-01-18 15:44] VITALS: BP 117/48
--- NOTE | 2021-01-18 18:37 | NUR ---
PATIENT CONTINUE TO TOLERATE DAILY THERAPY/EXERCISE, NO ACUTE CHANGE. STABLE
[2021-01-18 20:10] VITALS: BP 115/49
[2021-01-19 04:05] VITALS: BP 147/61
[2021-01-19] MEDS: ACIDOPHILUS/BULGARICUS CHEW TAB PO SCH (08:27)
[2021-01-19] MEDS: GLIMEPIRIDE 2 MG TABLET PO SCH (08:29)
[2021-01-19] MEDS: FOLIC ACID 1 MG TABLET PO SCH (08:29)
[2021-01-19] MEDS: MULTIVITAMINS,THERAPEUTIC TABLET PO SCH (08:29)
[2021-01-19] MEDS: NIFEdipine XL 30 MG TABSR PO SCH (08:30)
[2021-01-19] MEDS: CARVEDILOL 3.125 MG TABLET PO SCH ×2 (08:30→20:10)
[2021-01-19] MEDS: RIVAROXABAN 10 MG TABLET PO SCH (08:31)
[2021-01-19] MEDS: FERROUS GLUCONATE 324 MG TABLET PO SCH (08:35)
[2021-01-19 08:57] VITALS: BP 163/71
--- NOTE | 2021-01-19 11:13 | NUR ---
Received pt resting in bed and watching TV. AAO x4, Greek speaking at room air, no acute respiratory distress noted. Denies pain/ discomfort. Due meds given as ordered, tolerated well. Up in a W/C with PT, Safety measures maintained. Call light within reach. Will continue to monitor.
[2021-01-19 11:44] VITALS: BP 95/41
--- NOTE | 2021-01-19 19:47 | NUR ---
Received in bed, in semi fowlers position. AAO to self, able to answer questions appropriately. In a pleasant mood, some confusion noted. Denies any pain or discomfort. On RA, no SOB noted. Safety measures initiated. Needs assessed and met. Call light within reach.
[2021-01-19 20:03] VITALS: BP 124/53
[2021-01-20 04:03] VITALS: BP 143/59
--- NOTE | 2021-01-20 06:14 | NUR ---
Patient is awake since 5am, he is restless, irritable and attempting to get out of bed multiple times. Incontinent of bowel times once around 4am and continent around 6am of bladder. Patient also noted with agitation and confusion before midnight, with 3 episodes of diarrhea and one episode of vomiting. Able to sleep well after that. Able to make needs known. Denies any pain or nausea. Noted with itching to lower back, skin care and moisturizer provided. No other significant events this shift. Safety measures continued. Call light within reach. Addendum: 01/20/21 at 0622 by CRISTINA MCCRAY RN Wrong patient
--- NOTE | 2021-01-20 06:24 | NUR ---
Slept well this shift. No SOB, no C/O pain. No significant events this shift. Safety measures continued. Call light within reach.
[2021-01-20] MEDS: ACIDOPHILUS/BULGARICUS CHEW TAB PO SCH (08:08)
[2021-01-20] MEDS: RIVAROXABAN 10 MG TABLET PO SCH (08:08)
[2021-01-20] MEDS: FERROUS GLUCONATE 324 MG TABLET PO SCH (08:08)
[2021-01-20] MEDS: MULTIVITAMINS,THERAPEUTIC TABLET PO SCH (08:08)
[2021-01-20] MEDS: GLIMEPIRIDE 2 MG TABLET PO SCH (08:08)
[2021-01-20] MEDS: NIFEdipine XL 30 MG TABSR PO SCH (08:08)
[2021-01-20] MEDS: FOLIC ACID 1 MG TABLET PO SCH (08:08)
[2021-01-20] MEDS: CARVEDILOL 3.125 MG TABLET PO SCH ×2 (08:09→20:13)
[2021-01-20 08:35] VITALS: BP 114/54
[2021-01-20 15:19] VITALS: BP 110/43
--- NOTE | 2021-01-20 19:30 | NUR ---
Sleeping in bed intermittently, in semi fowlers position. AAO to self. In a pleasant mood, she is New Zealander speaking. Denies any pain or discomfort. On RA, no SOB noted. Safety measures initiated. Needs assessed and met. Call light within reach.
[2021-01-20 20:03] VITALS: BP 109/45
[2021-01-21 04:06] VITALS: BP 136/48
--- NOTE | 2021-01-21 06:16 | NUR ---
Patient slept well. No significant events this shift. Safety measures continued. Call light within reach.
[2021-01-21 07:30] VITALS: BP 140/61
[2021-01-21] MEDS: NIFEdipine XL 30 MG TABSR PO SCH (08:56)
[2021-01-21] MEDS: MULTIVITAMINS,THERAPEUTIC TABLET PO SCH (08:56)
[2021-01-21] MEDS: FOLIC ACID 1 MG TABLET PO SCH (08:56)
[2021-01-21] MEDS: ACIDOPHILUS/BULGARICUS CHEW TAB PO SCH (08:56)
[2021-01-21] MEDS: CARVEDILOL 3.125 MG TABLET PO SCH ×2 (08:56→20:17)
[2021-01-21] MEDS: GLIMEPIRIDE 2 MG TABLET PO SCH (08:57)
[2021-01-21] MEDS: FERROUS GLUCONATE 324 MG TABLET PO SCH (08:57)
[2021-01-21] MEDS: RIVAROXABAN 10 MG TABLET PO SCH (08:58)
[2021-01-21 15:40] VITALS: BP 127/55
[2021-01-21 20:00] VITALS: BP 121/52
[2021-01-22 04:00] VITALS: BP 129/59
--- NOTE | 2021-01-22 06:46 | NUR ---
No changes noted. Pt slept intermittently and easily arousable for care. All needs attended. Call light placed within reach. Frequent visual checks done. Will endorse to next shift for continuity of care.
[2021-01-22 08:00] VITALS: BP 124/54
--- NOTE | 2021-01-22 08:30 | NUR ---
RECEIVED PATIENT IN BED AWAKE ALERT AND AWARE WITH SOME LANGUAGE ISSUES BUT ABLE TO VERBALISE SOME NEEDS DENIES PAIN OR DISCOMFORTS AT THIS TIME DUE MEDICATIONS GIVEN AND TOLERATED WELL CALL LIGHTS AND PERSONAL BELONGINGS ARE WITHIN EASY REACH MADE COMFORTABLE WILL CONTINUE TO OBSERVE.
[2021-01-22] MEDS: MULTIVITAMINS,THERAPEUTIC TABLET PO SCH (09:12)
[2021-01-22] MEDS: ACIDOPHILUS/BULGARICUS CHEW TAB PO SCH (09:12)
[2021-01-22] MEDS: FOLIC ACID 1 MG TABLET PO SCH (09:12)
[2021-01-22] MEDS: GLIMEPIRIDE 2 MG TABLET PO SCH (09:12)
[2021-01-22] MEDS: FERROUS GLUCONATE 324 MG TABLET PO SCH (09:13)
[2021-01-22] MEDS: NIFEdipine XL 30 MG TABSR PO SCH (09:14)
[2021-01-22] MEDS: CARVEDILOL 3.125 MG TABLET PO SCH ×2 (09:15→21:04)
[2021-01-22] MEDS: RIVAROXABAN 10 MG TABLET PO SCH (09:23)
--- NOTE | 2021-01-22 11:30 | NUR ---
WAS REPORTED TO ME BY THE PHYSICAL THERAPIST THAT DURING HER SESSION WITH THE PATIENT SHE WAS ABLE TO ASSIST GETTING INTO THE CHAIR BUT THEN SHE BECAME WEAK AND DIAPHORETIC BLOOD PRESSURE CHECKED AND IT WAS 75/35 PATIENT QUICKLY ASSISTED INTO BED B/P RECHECKED AND IT CAME UP TO 124/54 HR IS 76 AND O2 SAT 97 ON ROOM AIR SHE IS AWAKE NOW ALERT AND AWARE ATTEMPTED TO TELL ME WHAT HAPPENED IN [place] LANGUAGE I WAS NOT PRESENT DURING THE ABOVE EPISODE BUT HER DAUGHTER WAS THERE AND TRANSLATED TO ME WHAT SHE WAS TRYING TO TELL ME.CALLED DR VELASCO AND LEFT HIM A MESSAGE RE ABOVE EPISODE.
[2021-01-22 13:59] VITALS: BP_SYST 103; BP_SYST 109; BP_SYST 114; BP_DIAS 46; BP_DIAS 49; BP_DIAS 54
[2021-01-22 16:00] VITALS: BP 130/60
--- NOTE | 2021-01-22 17:00 | NUR ---
BLOOD PRESSURE AT THIS TIME IS 130/60 AWAKE ALERT NO S/S OF PAIN OR DISCOMFORTS AT THIS TIME.
--- NOTE | 2021-01-22 18:00 | NUR ---
NEW ORDERS NOTED FROM DR VELASCO WITH CHANGES IN HER BLOOD PRESSURE MEDICATIONS RESTING COMFORTABLY.
[2021-01-22 20:31] VITALS: BP 146/58
--- NOTE | 2021-01-22 21:00 | NUR ---
PATIENT IN BED AWAKE ALERT COOPERATIVE WITH LANGUAGE BARRIERS BUT SHE SHE UNDERSTANDS AND COMPLIANT NO S/S OF PAIN OR DISCOMFORTS AT THIS TIME TURNED AND REPOSITIONED Q2H DR VELASCO HERE SPOKE WITH HIM RE PARAMETERS FOR MIDODRINE WITH NEW ORDERS AND NOTED.
[2021-01-22] MEDS: Z GUARD REMEDY PASTE 57 GM TUBE TOP SCH (21:05)
--- NOTE | 2021-01-23 00:30 | NUR ---
NOTED INCONTINENT OF BOWEL VIC CARE TURNED AND REPOSITIONED REMEDY PASTE APPLIED PATIENT IS CONFUSED AT THIS TIME AND IS SOMEWHAT UNCOOPERATIVE REASSURED HEELS FLOATED MADE COMFORTABLE WILL CONTINUE TO OBSERVE.
[2021-01-23 04:00] VITALS: BP 161/63
[2021-01-23 04:41] VITALS: BP 161/6
[2021-01-23 06:42] VITALS: BP 149/62
--- NOTE | 2021-01-23 06:45 | NUR ---
BLOOD PRESSURE RECHECKED AT THIS TIME AND ITS 149/62 MADE COMFORTABLE WILL CONTINUE TO OBSERVE.
[2021-01-23 07:32] VITALS: BP 147/62
[2021-01-23 07:50] LABS: HEMATOCRIT 26.1 % (31.2-41.9); MEAN CORPUSCULAR HEMOGLOBIN 31.5 uug (24.7-32.8); MEAN CORPUSCULAR VOLUME 94.2 fL (75.5-95.3); PLATELET COUNT (AUTO) 318 K/uL (179-408)
--- NOTE | 2021-01-23 08:00 | NUR ---
Pt received awake, calm, A/O x3. denies distress, breathing non-labored. Comfort measures inforced, side rails are up, call light is in reach. Pt is compliant with medications. Midoine was held due to parameters.
[2021-01-23 08:16] LABS: BILIRUBIN,TOTAL 0.3 mg/dL (0.2-1.0); CREATININE 0.7 mg/dL (0.6-1.3); PHOSPHOROUS 3.9 mg/dL (2.5-4.9); POTASSIUM 3.9 mmol/L (3.5-5.1)
[2021-01-23] MEDS: MIDODRINE HCL 5 MG TABLET PO SCH ×2 (09:00→17:00)
[2021-01-23] MEDS: MULTIVITAMINS,THERAPEUTIC TABLET PO SCH (09:34)
[2021-01-23] MEDS: GLIMEPIRIDE 2 MG TABLET PO SCH (09:34)
[2021-01-23] MEDS: CARVEDILOL 3.125 MG TABLET PO SCH ×2 (09:35→20:12)
[2021-01-23] MEDS: FERROUS GLUCONATE 324 MG TABLET PO SCH (09:36)
[2021-01-23] MEDS: ACIDOPHILUS/BULGARICUS CHEW TAB PO SCH (09:36)
[2021-01-23] MEDS: FOLIC ACID 1 MG TABLET PO SCH (09:37)
[2021-01-23] MEDS: Z GUARD REMEDY PASTE 57 GM TUBE TOP SCH ×2 (09:37→21:39)
[2021-01-23] MEDS: RIVAROXABAN 10 MG TABLET PO SCH (09:37)
--- NOTE | 2021-01-23 11:50 | NUR ---
INTERDISCIPLINARY TEAM CONFERENCE
[2021-01-23 16:00] VITALS: BP 129/60
[2021-01-23 20:10] VITALS: BP 135/61
[2021-01-24 04:00] VITALS: BP 121/61
[2021-01-24 07:54] VITALS: BP 157/64
[2021-01-24] MEDS: ACIDOPHILUS/BULGARICUS CHEW TAB PO SCH (08:20)
[2021-01-24] MEDS: FERROUS GLUCONATE 324 MG TABLET PO SCH (08:20)
[2021-01-24] MEDS: GLIMEPIRIDE 2 MG TABLET PO SCH (08:21)
[2021-01-24] MEDS: CARVEDILOL 3.125 MG TABLET PO SCH ×2 (08:21→20:27)
[2021-01-24] MEDS: RIVAROXABAN 10 MG TABLET PO SCH (08:21)
[2021-01-24] MEDS: FOLIC ACID 1 MG TABLET PO SCH (08:21)
[2021-01-24] MEDS: MULTIVITAMINS,THERAPEUTIC TABLET PO SCH (08:22)
[2021-01-24] MEDS: MIDODRINE HCL 5 MG TABLET PO SCH ×2 (08:22→16:10)
[2021-01-24] MEDS: Z GUARD REMEDY PASTE 57 GM TUBE TOP SCH ×2 (09:12→21:48)
[2021-01-24] MEDS: ACETAMINOPHEN 325 MG TABLET PO PRN (15:40)
--- NOTE | 2021-01-24 18:30 | NUR ---
pt c/o pain in the left wrist md made aware
[2021-01-24 20:00] VITALS: BP 130/50
[2021-01-25 00:04] LABS: *BILIRUBIN,URIN NEGATIVE (NEGATIVE); *BLOOD, URINE NEGATIVE (NEGATIVE); *CLARITY,URINE CLEAR (CLEAR); *COLOR,URINE YELLOW (YELLOW); *KETONES,URINE NEGATIVE (NEGATIVE); *UROBILINOGEN,URINE 0.2 E.U./dl (NORMAL); LEUKOCYTE ESTERASE ,URINE NEGATIVE (NEGATIVE); NITRITE, URINE NEGATIVE (NEGATIVE); PH,URINE 5.5 (5.0-8.0); UGLUCOSE NEGATIVE (NEGATIVE)
[2021-01-25 04:10] VITALS: BP 141/67
[2021-01-25 07:51] VITALS: BP 165/59
[2021-01-25] MEDS: MULTIVITAMINS,THERAPEUTIC TABLET PO SCH (09:11)
[2021-01-25] MEDS: MIDODRINE HCL 5 MG TABLET PO SCH ×2 (09:17→17:46)
[2021-01-25] MEDS: ACIDOPHILUS/BULGARICUS CHEW TAB PO SCH (09:17)
[2021-01-25] MEDS: FOLIC ACID 1 MG TABLET PO SCH (09:17)
[2021-01-25] MEDS: RIVAROXABAN 10 MG TABLET PO SCH (09:19)
[2021-01-25] MEDS: Z GUARD REMEDY PASTE 57 GM TUBE TOP SCH ×2 (09:20→20:23)
[2021-01-25] MEDS: FERROUS GLUCONATE 324 MG TABLET PO SCH (09:20)
[2021-01-25] MEDS: CARVEDILOL 3.125 MG TABLET PO SCH ×2 (09:21→20:22)
[2021-01-25] MEDS: GLIMEPIRIDE 2 MG TABLET PO SCH (09:23)
[2021-01-25] MEDS: NIFEdipine XL 30 MG TABSR PO SCH (09:53)
[2021-01-25] MEDS: PIPERACILLIN SODIUM/TAZOBACTAM 3.375 G in IV DEXTROSE 5% 50 ML IV SCH ×3 (12:05→22:00)
[2021-01-25 15:19] VITALS: BP 145/61
--- NOTE | 2021-01-25 16:12 | NUR ---
Patient was encouraged to feed self, daughter in and assist patient with her meals. Safety reviewed. Preferred to take her pills with apple sauce. . Pressure relief, repositioned at a regular intervals
--- NOTE | 2021-01-25 20:49 | NUR ---
Received PT Sleeping in bed comfortably, in semi fowlers position. AAO to self.In pleasant mood, she is Algerian speaking with little Turkmen. Denies any pain or discomfort continuo on ATB TX IV with Zosyn tolerated well no S/S of A/R noted. On RA, no SOB noted. Safety measures in place. Needs assessed and met. Call light within reach
[2021-01-25 20:53] VITALS: BP 110/49
[2021-01-26 05:26] VITALS: BP 153/65
[2021-01-26] MEDS: PIPERACILLIN SODIUM/TAZOBACTAM 3.375 G in IV DEXTROSE 5% 50 ML IV SCH (05:40)
[2021-01-26 08:00] VITALS: BP 141/62
[2021-01-26] MEDS: GLIMEPIRIDE 2 MG TABLET PO SCH (08:37)
[2021-01-26] MEDS: RIVAROXABAN 10 MG TABLET PO SCH (08:39)
[2021-01-26] MEDS: MULTIVITAMINS,THERAPEUTIC TABLET PO SCH (08:40)
[2021-01-26] MEDS: ACIDOPHILUS/BULGARICUS CHEW TAB PO SCH (08:40)
[2021-01-26] MEDS: FOLIC ACID 1 MG TABLET PO SCH (08:41)
[2021-01-26] MEDS: CARVEDILOL 3.125 MG TABLET PO SCH ×2 (08:41→20:46)
[2021-01-26] MEDS: FERROUS GLUCONATE 324 MG TABLET PO SCH (08:42)
[2021-01-26] MEDS: MIDODRINE HCL 5 MG TABLET PO SCH ×2 (08:43→16:18)
[2021-01-26] MEDS: NIFEdipine XL 30 MG TABSR PO SCH (08:46)
[2021-01-26] MEDS: Z GUARD REMEDY PASTE 57 GM TUBE TOP SCH ×2 (08:47→20:47)
[2021-01-26] MEDS: PIPERACILLIN SODIUM/TAZOBACTAM 3.375 G in IV DEXTROSE 5% 100 ML IV SCH ×2 (13:43→21:11)
[2021-01-26 16:13] VITALS: BP_SYST 122; BP_DIAS 36; BP_DIAS 46
--- NOTE | 2021-01-26 16:31 | NUR ---
no events noted during shift
[2021-01-26 20:02] VITALS: BP 119/49
[2021-01-27 04:20] VITALS: BP 141/54
[2021-01-27] MEDS: PIPERACILLIN SODIUM/TAZOBACTAM 3.375 G in IV DEXTROSE 5% 100 ML IV SCH ×3 (05:14→22:25)
--- NOTE | 2021-01-27 06:04 | NUR ---
PATIENT ASLEEP IN BED. SLEPT WELL THROUGHOUT THE NIGHT. NO S/S OF PAIN OR DISCOMFORT. NO RESP. DISTRESS NOTED. VS WNL. BED ALARM ON. CALL LIGHT IN REACH. ALL NEEDS ATTENDED. WILL CONTINUE TO MONITOR AND ASSESS.
[2021-01-27 07:52] VITALS: BP 149/63
[2021-01-27] MEDS: MIDODRINE HCL 5 MG TABLET PO SCH ×2 (09:00→17:00)
[2021-01-27] MEDS: FOLIC ACID 1 MG TABLET PO SCH (09:12)
[2021-01-27] MEDS: ACIDOPHILUS/BULGARICUS CHEW TAB PO SCH (09:12)
[2021-01-27] MEDS: NIFEdipine XL 30 MG TABSR PO SCH (09:12)
[2021-01-27] MEDS: CARVEDILOL 3.125 MG TABLET PO SCH ×2 (09:12→20:51)
[2021-01-27] MEDS: MULTIVITAMINS,THERAPEUTIC TABLET PO SCH (09:13)
[2021-01-27] MEDS: GLIMEPIRIDE 2 MG TABLET PO SCH (09:13)
[2021-01-27] MEDS: FERROUS GLUCONATE 324 MG TABLET PO SCH (09:14)
[2021-01-27] MEDS: Z GUARD REMEDY PASTE 57 GM TUBE TOP SCH ×2 (09:14→20:51)
[2021-01-27] MEDS: RIVAROXABAN 10 MG TABLET PO SCH (09:15)
[2021-01-27 15:46] VITALS: BP 138/56
[2021-01-27 20:15] VITALS: BP 132/60
[2021-01-28 04:40] VITALS: BP 136/70
[2021-01-28] MEDS: PIPERACILLIN SODIUM/TAZOBACTAM 3.375 G in IV DEXTROSE 5% 100 ML IV SCH ×3 (06:22→22:59)
--- NOTE | 2021-01-28 06:27 | NUR ---
patient slept well through out the night. resting in bed comfortably. kept clean and dry. denies pain or discomfort.call light w/in reach.
[2021-01-28 08:01] VITALS: BP 158/68
[2021-01-28] MEDS: FERROUS GLUCONATE 324 MG TABLET PO SCH (08:09)
[2021-01-28] MEDS: MIDODRINE HCL 5 MG TABLET PO SCH ×2 (08:10→17:21)
[2021-01-28] MEDS: NIFEdipine XL 30 MG TABSR PO SCH (08:10)
[2021-01-28] MEDS: GLIMEPIRIDE 2 MG TABLET PO SCH (08:10)
[2021-01-28] MEDS: MULTIVITAMINS,THERAPEUTIC TABLET PO SCH (08:10)
[2021-01-28] MEDS: CARVEDILOL 3.125 MG TABLET PO SCH ×2 (08:10→22:00)
[2021-01-28] MEDS: FOLIC ACID 1 MG TABLET PO SCH (08:11)
[2021-01-28] MEDS: ACIDOPHILUS/BULGARICUS CHEW TAB PO SCH (08:11)
[2021-01-28] MEDS: RIVAROXABAN 10 MG TABLET PO SCH (08:12)
[2021-01-28] MEDS: Z GUARD REMEDY PASTE 57 GM TUBE TOP SCH ×2 (08:18→22:00)
--- NOTE | 2021-01-28 15:02 | NUR ---
Patient's peripheral IV site in right antecubital area noted to be bleeding and dressing soiled. Peripheral IV line is not patent and therefore was removed by this sports writer. Site noted to be bleeding due to patient being on Xarelto, pressure applied to site and secure with gauze and tape. This sports writer attempted to reinsert peripheral IV but was unsuccessful. MD notified, orders given to place order for midline catheter. GUT SNATCHER notified. Currently awaiting midline placement. 1400 Zosyn was held because patient does not have an insertion site.
[2021-01-28 16:14] VITALS: BP 124/51
[2021-01-28 20:36] VITALS: BP 118/54
[2021-01-28] MEDS: ACETAMINOPHEN 325 MG TABLET PO PRN (22:00)
--- NOTE | 2021-01-29 00:46 | NUR ---
Received to care, awake, and alert, lying in bed. compliant with nursing care, and with PO medications, crushed in applesauce. Still aweaiting midline insertion. Charge nurse Sonia is aware. 22 gauge peripheral IV was inserted by one of the RN s on duty, but she immediately pulled it out. Monitored closely for bleeding. Small amount noted, but it quickly stopped. As of now, she is sleeping soundly. No distress noted. Monitored closely for safety.
[2021-01-29 04:00] VITALS: BP 100/52
[2021-01-29] MEDS: PIPERACILLIN SODIUM/TAZOBACTAM 3.375 G in IV DEXTROSE 5% 100 ML IV SCH (06:00)
--- NOTE | 2021-01-29 06:20 | NUR ---
0600 zosyn dose was not given due to no IV site. Awaiting midline insertion.
[2021-01-29 08:00] VITALS: BP 101/59
[2021-01-29] MEDS: ACIDOPHILUS/BULGARICUS CHEW TAB PO SCH (08:42)
[2021-01-29] MEDS: MULTIVITAMINS,THERAPEUTIC TABLET PO SCH (08:42)
[2021-01-29] MEDS: FOLIC ACID 1 MG TABLET PO SCH (08:43)
[2021-01-29] MEDS: GLIMEPIRIDE 2 MG TABLET PO SCH (08:43)
[2021-01-29] MEDS: RIVAROXABAN 10 MG TABLET PO SCH (08:44)
[2021-01-29] MEDS: Z GUARD REMEDY PASTE 57 GM TUBE TOP SCH (08:45)
[2021-01-29] MEDS: CARVEDILOL 3.125 MG TABLET PO SCH (08:51)
[2021-01-29] MEDS: NIFEdipine XL 30 MG TABSR PO SCH (08:51)
[2021-01-29] MEDS: FERROUS GLUCONATE 324 MG TABLET PO SCH (08:52)
[2021-01-29] MEDS: MIDODRINE HCL 5 MG TABLET PO SCH ×2 (08:55→17:00)
[2021-01-29 16:00] VITALS: BP 107/52
--- NOTE | 2021-01-29 16:45 | NUR ---
Discharge order received from Dr. Colon, order carried out.
[2021-01-29 17:00] VITALS: BP 132/60
[2021-01-29] MEDS ORDERED: AMOXICILLIN-CLAVUL 875-125MG TABLET PO SCH (17:00)
--- NOTE | 2021-01-29 17:30 | NUR ---
Discharge instructions provided to Margarette (daughter) with verbalized understanding. Discharge papers signed by the daughter. All belongings well accounted for. Patient remains awake, alert, not in any form of distress, on room air, cooperative. She denies any pain or discomfort. Vital signs stable. Assisted with her needs. Patient picked up by [facility] transferred via gurney. Report given to Virginia RAMIREZ from [facility].
== END 2021-01-29 17:30 | DRG 56 ==
PROVIDERS: ADMIT Physical Medicine & Rehabilitation Pain Medicine; ATTEND Physical Medicine & Rehabilitation Pain Medicine
DX: I69.351 Hemiplegia and hemiparesis following cerebral infarction affecting right dominant side (principal); G92.8 Other toxic encephalopathy; I21.A1 Myocardial infarction type 2; J69.0 Pneumonitis due to inhalation of food and vomit; D68.59 Other primary thrombophilia; I82.401 Acute embolism and thrombosis of unspecified deep veins of right lower extremity; R47.01 Aphasia; R53.1 Weakness; D64.9 Anemia, unspecified; E11.9 Type 2 diabetes mellitus without complications; I11.9 Hypertensive heart disease without heart failure; M19.90 Unspecified osteoarthritis, unspecified site; Z20.822 Contact with and (suspected) exposure to COVID-19; Z79.01 Long term (current) use of anticoagulants; E77.8 Other disorders of glycoprotein metabolism; M11.232 Other chondrocalcinosis, left wrist; M19.032 Primary osteoarthritis, left wrist; M85.80 Other specified disorders of bone density and structure, unspecified site; R13.10 Dysphagia, unspecified; R26.2 Difficulty in walking, not elsewhere classified; R60.0 Localized edema; M17.12 Unilateral primary osteoarthritis, left knee
CPT/HCPCS: 36415; 71045; 73110; 83735; 84100; 85025; 87086; 97161; A4663; A6209; C1758; J0692; J2543; J7040; J7060